=== PATIENT | male | born 1940 | race Caucasian/White ===

== ENCOUNTER 2017-11-10 08:43 | Observation (INO) | payer MEDICARE, BC ==
[2017-11-10] MEDS ORDERED: NS 0.9% 1000 ML* 1,000 ML IV ONE (09:11)
--- NOTE | 2017-11-10 09:12 | ED ---
Syncope/Near Syncope - HPI Summary HPI Summary: Patient is a 77-year-old male who presents emergency department for evaluation after a fall. Patient has a history of Parkinson's disease. Denies at home with his . Patient states he got up early this morning to go to the bathroom when he suddenly syncopized and struck his head and left flank. He denied current chest pain, shortness of breath, lightheadedness, dizziness, recent illness, vomiting, diarrhea, abdominal pain, fever. Patient states he went back to sleep and when he awoke, he urinated blood and presented to the emergency department. He is not anticoagulated. Symptoms are moderate in severity. No current modifying factors. - History Of Current Complaint Chief Complaint: EDUrogenitalProblems Time Seen by Provider: 11/10/17 08:57 Hx Obtained From: Patient, Family/Wirer Maintenance - Allergies/Home Medications Allergies/Adverse Reactions: Allergies Allergy/AdvReac Type Severity Reaction Status Date / Time No Known Allergies Allergy Verified 11/10/17 08:51 Home Medications: Home Medications Amantadine CAP* [Symmetrel CAP*] 100 mg PO BID 11/10/17 [History Confirmed 11/10] Aspirin EC TAB* [Ecotrin EC Low Dose 81 MG*] 81 mg PO DAILY 11/10/17 [History Confirmed 11/10/17] Carbidopa/Levodop 25/100 MG(*) [Sinemet 25/100 TAB(*)] 1 tab PO QID 11/10/17 [ History Confirmed 11/10/17] Cholecalciferol (Vitamin D3) [Vitamin D3] 2,000 unit PO DAILY 11/10/17 [History Confirmed 11/10/17] Docusate CAP* [Colace Cap*] 200 mg PO DAILY 11/10/17 [History Confirmed 11/10/17 ] Donepezil TAB* [Aricept 5 MG TAB*] 10 mg PO DAILY 11/10/17 [History Confirmed ] Escitalopram (NF) [Lexapro 20 mg (NF)] 20 mg PO DAILY 11/10/17 [History Confirmed 11/10/17] Ketoconazole 2 % CREAM (NF) [Nizoral 2% CREAM (NF)] 1 applic TOPICAL BID PRN [History Confirmed 11/10/17] Melatonin 10 mg PO BEDTIME 11/10/17 [History Confirmed 11/10/17] busPIRone TAB* [Buspar TAB*] 5 mg PO TID 11/10/17 [History Confirmed 11/10/17] PMH/Surg Hx/FS Hx/Imm Hx Previously Healthy: Yes Cardiovascular History: Denies: Hx Pacemaker/ICD Sensory History: Denies: Hx Hearing Aid Psychiatric History: Denies: Hx Panic Disorder - Surgical History Surgery Procedure, Year, and Place: MELANOMA REMOVED FROM RIGHT CHEEK Infectious Disease History: No Infectious Disease History: Denies: Traveled Outside the [place] in Last 30 Days - Family History Known Family History: Positive: Other - Noncontributory - Social History Occupation: Retired Lives: With Family Alcohol Use: Weekly Substance Use Type: Reports: None Smoking Status (MU): Never Smoked Tobacco Review of Systems Constitutional: Negative Negative: Fever, Chills Eyes: Negative ENT: Negative Cardiovascular: Negative Negative: Palpitations, Chest Pain Respiratory: Negative Negative: Shortness Of Breath, Cough Gastrointestinal: Negative Positive: flank pain, hematuria Musculoskeletal: Negative Skin: Negative Positive: Headache All Other Systems Reviewed And Are Negative: Yes Physical Exam Triage Information Reviewed: Yes Vital Signs On Initial Exam: Initial Vitals Temp Pulse Resp BP Pulse Ox 98.1 F 76 16 130/63 96 11/10/17 08:47 11/10/17 08:47 11/10/17 08:47 11/10/17 08:47 11/10/17 08:47 Vital Signs Reviewed: Yes Appearance: Positive: Well-Appearing - Pt. lying on bed in NAD. present. Skin: Positive: Warm, Dry Head/Face: Positive: Normal Head/Face Inspection Eyes: Positive: Normal, EOMI Neck: Positive: Supple Respiratory/Lung Sounds: Positive: Clear to Auscultation, Breath Sounds Present Cardiovascular: Positive: Normal, RRR Abdomen Description: Positive: Nontender, Soft, CVA Tenderness (L) Neurological: Positive: Normal, CN Intact II-III Psychiatric: Positive: Affect/Mood Appropriate - Lilliana Coma Scale Best Eye Response: 4 - Spontaneous Best Motor Response: 6 - Obeys Commands Best Verbal Response: 5 - Oriented Coma Scale Total: 15 Diagnostics - Vital Signs Vital Signs Temp Pulse Resp BP Pulse Ox 11/10/17 08:47 98.1 F 76 16 130/63 96 - Laboratory Result Diagrams: 11/10/17 09:21 11/10/17 09:21 Lab Statement: Any lab studies that have been ordered have been reviewed, and results considered in the medical decision making process. Course/Dx Course Of Treatment: Patient presenting with possible syncopal episode, flank pain and hematuria. Vital signs are stable. Blood work and imaging was ordered. Labs are unremarkable. Head, neck and abdominal CT scan are negative for acute findings. Urinalysis does show an elevated RBCs as well as WBCs. Negative troponin. EKG done at 923 shows a sinus rhythm of 61 bpm, normal axis , appropriate intervals, no ST elevation or depression. Case discussed with Dr. Healy. Give likely syncopal episode, recommends admission. I spoke with hospitalist, Dr. Cochran, and pt. has been accepted for further evaluation and care. - Diagnoses Provider Diagnoses: Syncope, Hematuria Discharge - Sign-Out/Discharge Documenting (check all that apply): Patient Departure - Discharge Plan Condition: Stable Disposition: ADMITTED TO [facility] - Billing Disposition and Condition Condition: STABLE Disposition: Admitted to [facility]
[2017-11-10 09:28] LABS: ABS Basophils 0 10^3/ul (0-0.2); ABS Eosinophils 0.1 10^3/ul (0-0.6); ABS Lymphocytes 0.9 10^3/ul (1.0-4.8); ABS Monocytes 0.4 10^3/ul (0-0.8); ABS Neutrophils 3.8 10^3/ul (1.5-7.7); ABS Nucleated RBC 0 10^3/ul; Eosinophil % 1.1 % (0-6); Hematocrit 44 % (42-52); Hemoglobin 15.3 g/dl (14.0-18.0); Lymphocyte % 18.1 % (25-47); Mean Corpuscular HGB Conc 35 g/dl (31-36); Mean Corpuscular Hemoglobin 33 pg (27-31); Mean Corpuscular Volume 94 fL (80-94); Mean Platelet Volume 7.1 um3 (7.4-10.4); Nucleated Red Blood Cells % 0.1; Platelet Count 196 10^3/ul (150-450); Red Blood Count 4.73 10^6/ul (4.00-5.40); Red Cell Distribution Width 14 % (10.5-15); White Blood Count 5.2 10^3/ul (3.5-10.8)
[2017-11-10 09:39] LABS: INR 1.06 (0.77-1.02)
[2017-11-10 09:46] LABS: EGFR Non-African American 87.6 (>60)
[2017-11-10] MEDS ORDERED: Iohexol 300* (CONTRAST) 10 ML SDV IV ONE (09:56)
--- NOTE | 2017-11-10 10:10 | RAD ---
INDICATION: Syncope. COMPARISON: Comparison is made with prior chest x-ray study from December 18, 2015. TECHNIQUE: A portable view of the chest was obtained. FINDINGS: Cardiac and mediastinal contours appear to be within normal limits. The lungs are hyperinflated and clear. No pleural effusion is seen. IMPRESSION: NO EVIDENCE FOR ACUTE DISEASE.
--- NOTE | 2017-11-10 10:37 | RAD ---
HISTORY: fall COMPARISONS: None TECHNIQUE: Multiple contiguous axial CT scans were obtained of the head without intravenous contrast. FINDINGS: HEMORRHAGE/INFARCT: There is no hemorrhage or acute infarct. MASSES/SHIFT: There is no mass or shift. EXTRA-AXIAL SPACES: There are no extra-axial fluid collections. SULCI AND VENTRICLES: The sulci and ventricles are normal in size and position for the patient's stated age. CEREBRUM: There are no focal parenchymal abnormalities. BRAINSTEM: There are no focal parenchymal abnormalities. CEREBELLUM: There are no focal parenchymal abnormalities. VESSELS: The vessels are grossly normal. PARANASAL SINUSES: The paranasal sinuses are clear. ORBITS: The orbits are unremarkable. BONES AND SOFT TISSUE: No bone or soft tissue abnormalities are noted. OTHER: None IMPRESSION: NO ACUTE INTRACRANIAL PATHOLOGY.
--- NOTE | 2017-11-10 14:58 | RAD ---
INDICATION: Flank pain and gross hematuria post fall yesterday. History of melanoma. COMPARISON: No relevant prior exams available on the [facility] for comparison. TECHNIQUE: Multidetector CT images were obtained from the lung bases to the ischial tuberosities with 112 mL Omnipaque 300 IV contrast. No oral contrast administered. Multiplanar reformation. REPORT: VISUALIZED INFERIOR THORAX: Minimal bibasilar dependent atelectasis. Negative for pleural effusions or pneumothorax within the [id number]. LIVER / GALLBLADDER / PANCREAS / SPLEEN: Unremarkable liver, incompletely distended gallbladder, pancreas, spleen. ALIMENTARY TRACT: No CT abnormality of the upper GI, small bowel, infra cecal appendix, or colon. Negative for ascites, free air, hernias. MESENTERIC: Unremarkable. ADRENAL / GENITOURINARY: Normal adrenal glands. Symmetric nephrograms and pyelograms. Normal variant extrarenal pelves. Mild caliectasis of both kidneys. Negative for perinephric edema or hematoma. Unremarkable nondilated ureters and partially distended urinary bladder. Enlarged prostate. Grossly symmetric seminal vesicles. RETROPERITONEAL: Negative for retroperitoneal lymphadenopathy. VASCULAR: Mild atherosclerotic plaque of normal diameter abdominal aorta and iliac arteries. Physiologic partial distention of the IVC. BONES: Negative for lumbar sacral spine, pelvic, or proximal femur fracture. Polyarticular degenerative arthropathy. Negative for suspicious focal osseous lesions. SOFT TISSUE: Unremarkable. IMPRESSION: #. No definitive etiology for gross hematuria evident. #. Probable mild bilateral chronic ureteropelvic junction obstruction. #. Prostatomegaly. #. Negative for lymphadenopathy.
--- NOTE | 2017-11-10 14:59 | RAD ---
Indication: Fall, neck injury. CT of the cervical spine was obtained in the axial plane. Sagittal and coronal reconstructed images were obtained. The skull base demonstrates no evidence of fracture. Mastoid air cells are well aerated. The C1 ring is intact. Degenerative changes of the atlantoaxial joint are noted. Degenerative disc disease at C2-3, C3-4, C4-5, C5-6 and C6-7 with bridging syndesmophytes are noted. Bridging syndesmophytes are noted at C5-6 and C6-7 dorsally. No fracture is noted. Adjacent to the spinous process at C5 and C6, there are bony fragments which likely represent sequela of old injury. IMPRESSION: 1. Multilevel degenerative disc disease without evidence of fracture. 2. Sequela of old injury adjacent to the spinous process of C5 and C6.
[2017-11-10] MEDS ORDERED: Acetaminophen TAB* 325 MG PO PRN (15:47)
[2017-11-10] MEDS ORDERED: Al Hydrox/Mg Hydrox/Simet LIQ* 30 ML UDC PO PRN (15:47)
[2017-11-10] MEDS ORDERED: oxyCODONE/Acetamin 5/325 MG* TAB PO PRN (15:47)
[2017-11-10] MEDS ORDERED: Albuterol 2.5 MG/3 ML NEB.SOL* (0.083%) INH PRN (15:47)
[2017-11-10] MEDS ORDERED: Ondansetron INJ* 2 MG/ML VIAL IV PRN (15:47)
[2017-11-10] MEDS ORDERED: Ketoconazole 2 % CREAM (NF) 30 GM TUBE TOPICAL PRN (15:52)
[2017-11-10 16:30] LABS: Urine Appearance Clear; Urine Blood 3+ (Negative); Urine Color Straw; Urine Ketones Negative (Negative); Urine Protein Negative (Negative); Urine Red Blood Cell 2+(6-10/hpf) (Absent); Urine Specific Gravity 1.016 (1.010-1.030); Urine Urobilinogen Negative (Negative); Urine White Blood Cell 3+(>20/hpf) (Absent)
[2017-11-10] MEDS ORDERED: Carbidopa/Levodop 25/100 MG TAB(*) PO SCH ×4 (17:00→21:00)
[2017-11-10] MEDS ORDERED: Melatonin 3 MG TAB PO SCH (21:00)
[2017-11-10] MEDS: Amantadine CAP* 100 MG PO SCH (21:11)
[2017-11-10] MEDS: busPIRone TAB* 5 MG PO SCH (21:12)
[2017-11-10] MEDS: Heparin VIAL(*) 5000 UNITS/ML VIAL (FIVE THOUSAND) SUBCUT SCH (21:14)
--- NOTE | 2017-11-10 21:25 | HP ---
ADMISSION HISTORY AND PHYSICAL: DATE OF ADMISSION: 11/10/17 PATIENT OF ATTENDING HOSPITALIST: Tc Cochran MD * (DICTATED BY LOI MAAYA) PRIMARY CARE PHYSICIAN: Marcelo Fernando MD CHIEF COMPLAINT: Syncope and fall. HISTORY OF PRESENT ILLNESS: Mr. Verma is a 77-year-old gentleman with past medical history significant for severe advanced Parkinson's disease who presented to the emergency room earlier this morning after he sustained a fall at home. The patient apparently had intermittent dizzy spells for which he has been managing well at home taking his Parkinson's medicine. He denied any syncopal episode related to his dizziness; however, he realized that he sometimes gets orthostatic hypotension at home and has been careful when he gets up from a sitting or a lying down position. Unfortunately, he had another dizzy spell this morning that led to a syncopal episode. Then, he fell at home striking his head and left side. He was brought to the emergency room accompanied by his and denied any chest pain, dizziness, or headache. He had a CT scan of the head and neck that revealed no evidence of intracranial hemorrhage or any acute process. He also noted some pain to the left flank when he fell; however, he denied any pain right now. A CT scan of the abdomen and pelvis was done in the emergency room as well that revealed no evidence of fractured rib or splenic or hepatic injury. The patient was in the emergency room and had to use a bathroom, noticed to have some gross hematuria upon voiding. UA was done and revealed also evidence of urinary tract infection. The patient had some IV fluid and had voided twice more while he was staying in the emergency room with visible resolution of hematuria. It was thought that the patient would be stable to be discharged home and he wanted to sign AMA at some point; however, he was talked into staying in the hospital for observation overnight given his syncopal episode that was likely secondary to his known history of Parkinson's disease. He denied any chest pain, shortness of breath, cough, dizziness, slurred speech, or lower extremity weakness. PAST MEDICAL HISTORY: As mentioned above, significant for: 1. Advanced Parkinson's disease. 2. Also, anxiety and depression. PAST SURGICAL HISTORY: Significant for melanoma removal from his right cheek about 10 years ago. It was stage 1 with no evidence of metastasis. CURRENT MEDICATIONS: His medications at home include: 1. Amantadine 100 mg p.o. b.i.d. 2. Aspirin 81 mg p.o. daily. 3. BuSpar 5 mg p.o. t.i.d. 4. Carbidopa levodopa 25/100 one tablet p.o. 4 times a day. 5. Vitamin D3 2000 units p.o. daily. 6. Colace 200 mg p.o. daily. 7. Aricept 10 mg p.o. daily. 8. Lexapro 20 mg p.o. daily. 9. Ketoconazole 2% cream apply to affected area b.i.d. 10. Melatonin 10 mg p.o. q.h.s. ALLERGIES: He has no known drug allergies. FAMILY HISTORY: Reviewed and noncontributory. SOCIAL HISTORY: The patient is a nonsmoker who drinks alcohol occasionally. He is retired. Lives with his who is the healthcare proxy carrier and he wishes to be a full code. REVIEW OF SYSTEMS: See HPI. Otherwise, 12 points review of systems were examined and they were essentially negative. PHYSICAL EXAMINATION GENERAL: He is a pleasant, older male, appears comfortable with some resting tremors obvious upon presentation, but in no acute distress or discomfort. VITAL SIGNS: Most recent set of vitals was temperature of 98.1, pulse of 63, blood pressure of 125/97, respirations of 16 with O2 sat of 96% on room air. HEENT: Head is normocephalic, atraumatic. There is no evidence of ecchymosis or swelling or any tenderness along the cranium. No abrasions noted. Pupils were equal, reactive, and EOMs were intact. Oropharynx is pink and moist. LUNGS: Clear to auscultation bilaterally. HEART: Regular rate and rhythm. Normal S1 and S2 without rubs, murmurs, or gallops. BACK: With normal curvature. No CVA tenderness. ABDOMEN: Soft, nontender, and nondistended. No hernias, masses, or hepatosplenomegaly. EXTREMITIES: Without cyanosis, clubbing, or edema. RECTAL: Exam deferred at this time. NEUROLOGIC: He is awake, alert, and oriented x4. Tongue is midline. Handgrip is equal bilaterally. There is visible bilateral resting tremors consistent with Parkinson's disease. Sensation was intact throughout. LABORATORY WORKUP: CBC today with white count of 5000, hemoglobin 15.3, hematocrit of 44, and platelets of 197. Chemistry panel with sodium of 135, potassium of 4.0, chloride 99, CO2 of 31, BUN of 17, creatinine of 0.8. His LFTs with elevated bilirubin of 2.0 and appears to be close to his baseline usually at the 1.6-1.7 range. Urinalysis with 3+ blood, positive for white cells and red cells. ACCESSORY DIAGNOSTIC DATA: The patient had CT scan of the brain, cervical spine as well as abdomen and pelvis that revealed no evidence of any acute injury or acute intracranial pathology. IMPRESSION: A 77-year-old gentleman with past medical history significant for advanced Parkinson's disease who presented to the emergency room after he sustained a fall secondary to a syncopal episode at home with history of chronic dizziness secondary to his Parkinson's disease, will be admitted to telemetry unit for observation for the following. ASSESSMENT AND PLAN: 1. Syncope. I suspect the patient had another dizzy episode with probable orthostatic hypotension. He described similar episodes at home; however, never progressed to a full syncopal episode. He sustained a fall with head injury and CT scan of the head and cervical spine showed no evidence of any intracranial hemorrhage. His neurological exam was essentially unremarkable; however, we will observe him closely at telemetry unit overnight with neurological examination every 4 hours and we will maintain him on all his Parkinson's medication. He denied any chest pain and I do not think there is any cardiac origin for his syncopal episode. He received a bolus of normal saline in the emergency room and it appears to maintain his blood pressure at reasonable range. I will repeat his orthostatic vitals and observe him overnight, likely to be discharged home tomorrow if stable. 2. Advanced Parkinson's disease. We will continue his amantadine and Sinemet. 3. Deep vein thrombosis prophylaxis. The patient is at high risk and will be covered with subcu heparin. 4. Code status. He is a full code. LOI AMAYA [id number]/[facility] #: [id number] [facility]
[2017-11-10] MEDS: Carbidopa/Levodop 25/100 MG TAB(*) PO SCH (21:39)
[2017-11-11] MEDS: Heparin VIAL(*) 5000 UNITS/ML VIAL (FIVE THOUSAND) SUBCUT SCH (06:31)
[2017-11-11] MEDS: Carbidopa/Levodop 25/100 MG TAB(*) PO SCH ×2 (06:34→11:46)
[2017-11-11 07:15] LABS: ABS Basophils 0 10^3/ul (0-0.2); ABS Eosinophils 0.1 10^3/ul (0-0.6); ABS Lymphocytes 1.5 10^3/ul (1.0-4.8); ABS Monocytes 0.5 10^3/ul (0-0.8); ABS Neutrophils 3.7 10^3/ul (1.5-7.7); ABS Nucleated RBC 0 10^3/ul; Eosinophil % 1.8 % (0-6); Hematocrit 43 % (42-52); Hemoglobin 14.8 g/dl (14.0-18.0); Lymphocyte % 25.5 % (25-47); Mean Corpuscular HGB Conc 34 g/dl (31-36); Mean Corpuscular Hemoglobin 32 pg (27-31); Mean Corpuscular Volume 94 fL (80-94); Mean Platelet Volume 7.2 um3 (7.4-10.4); Nucleated Red Blood Cells % 0; Platelet Count 189 10^3/ul (150-450); Red Blood Count 4.59 10^6/ul (4.00-5.40); Red Cell Distribution Width 14 % (10.5-15); White Blood Count 5.8 10^3/ul (3.5-10.8)
[2017-11-11 07:40] LABS: EGFR Non-African American 92.6 (>60)
[2017-11-11] MEDS: Amantadine CAP* 100 MG PO SCH (08:20)
[2017-11-11] MEDS: busPIRone TAB* 5 MG PO SCH ×2 (08:21→13:00)
[2017-11-11] MEDS ORDERED: CMC:Escitalopram (NF) 10 MG TAB PO SCH (09:00)
[2017-11-11] MEDS ORDERED: Donepezil TAB* 5 MG PO SCH (09:00)
[2017-11-11] MEDS ORDERED: Aspirin EC TAB* 81 MG TAB.EC PO SCH (09:00)
[2017-11-11] MEDS ORDERED: Docusate CAP* 100 MG PO SCH (09:00)
[2017-11-11 11:56] VITALS: BP 137/73
--- NOTE | 2017-11-14 09:53 | DS ---
CC: Dr. Fernando DISCHARGE SUMMARY: DATE OF ADMISSION: 11/10/17 DATE OF DISCHARGE: 11/11/17 PRIMARY CARE PROVIDER: Dr. Marcelo Fernando, [facility]. PRINCIPAL DISCHARGE DIAGNOSES: 1. Orthostatic hypotension related to severe advanced Parkinson's disease (postural orthostatic tach ycardia syndrome). 2. Anxiety. 3. Depression. 4. Status post melanoma removal from his right cheek. DISCHARGE MEDICATIONS: No changes and include: 1. Amantadine 100 mg by mouth twice daily. 2. Aspirin 81 mg by mouth daily. 3. BuSpar 5 mg by mouth 3 times daily. 4. Carbidopa/levodopa 25/100 mg strength one tablet by mouth 4 times daily. 5. Vitamin D3 2000 units by mouth daily. 6. Colace 200 mg by mouth daily. 7. Aricept 10 mg by mouth daily. 8. Lexapro 20 mg by mouth daily. 9. Ketoconazole 2% cream applied to the affected area twice daily. 10. Melatonin 10 mg by mouth at bedtime. HISTORY OF PRESENT ILLNESS/HOSPITAL COURSE: Please see the H and P by Dr. Tc Cochran on 10/23 . In brief, Mr. Verma is a 77-year-old gentleman with a past medical history noted below, who ca me to the emergency room for a fall at his home. He has been suffering intermittent dizzy spells and managing well at home otherwise. He is taking his Parkinson's medications reliably. He denied sync opal episodes related to dizziness; however, he notes that he sometimes gets orthostatic hypotension at home, and has been careful when he gets up from a sitting or a lying position. The patient had an additional dizzy spell that lead to a syncopal episode. The patient struck his head on his left girish e. He came to the emergency room and CT scanning of his head and neck revealed no evidence of intrac ranial hemorrhage or any acute process. The patient was pain free by the time I reevaluated him on 11/11/17. The patient received ample IV fluids. He voided twice and was standing without any difficu lty at the point of admission. He lives with his and she cares for him. The patient stayed ove rnight to ensure his blood pressure had normalized and in deeded it was improved and there was no enid dence of orthostatic hypotension by the time of discharge. The patient was on observation status and he was delivered return to ED instructions if he had any worrisome or continued symptoms including b ut not limited to lightheadedness, syncope/loss of consciousness, chest pain, or any other worrisome symptoms and he said he will comply. CONDITION ON DISCHARGE: Stable. [id number]/[facility] #: [id number]
== END 2017-11-11 13:16 | disposition home or self-care (01) ==
LOC: ED 08:43 → MEDTELE 15:47
PROVIDERS: ADMIT Student in an Organized Health Care Education/Training Program; ATTEND Internal Medicine
DX: R55 Syncope and collapse (principal); G20 Parkinson's disease; F41.9 Anxiety disorder, unspecified; F32.9 Major depressive disorder, single episode, unspecified; Z79.899 Other long term (current) drug therapy; Z79.82 Long term (current) use of aspirin
CPT/HCPCS: 36415; 70450; 71045; 72125; 74177; 80048; 80053; 81003; 81015; 84484; 85025; 85610; 87086; 93005; 96360; 96361; 96372; 99284; A9270-GY; G0378; J1644; Q9967

== ENCOUNTER → 2018-05-25 13:33 | Emergency (ER) | payer MEDICARE, BC ==
--- OUTSIDE RECORDS SUMMARY | 2018-05-25 13:52 | XMS REPORT | Continuity of Care Document ---
:1940 External Reference #:[id number] Author Name Marcelo Fernando M.D. Address [address] [place] [address] Care Team Providers Name Role Phone Marcelo Fernando M.D. Care Team Information Storage Consultant Unavailable Payers Date Identification Numbers Payment Provider Subscriber Policy Number: [id number] [facility] Number: [id number] PayID: [id number] [place] [address] Expires: 02/20/2013 Policy Number: [id number] [facility] Andrew Verma Group Number: [id number] [address] [place] [address] Effective: 02/21/2013 Policy Number: [id number] [facility] Andrew Verma Expires: 08/21/2017 Group Number: [id number] [address] PayID: [id number] [place] [address] Effective: 02/21/2017 Policy Number: [id number] [facility] Andrew Verma Group Name: [place] [address] [address] PayID: [id number] [place]OW[place] [id number] Advance Directives Type Date Description Status Comment Other Directive 12/13/2012 Health Care Proxy Current and Verified Problems Date Description Provider Status Onset: 06/03/2010 Essential hypertension Marcelo Fernando M.D. Active Onset: 06/03/2010 Mixed hyperlipidemia Marcelo Fernando M.D. Active Onset: 07/22/2015 Impaired fasting glycaemia Marcelo Fernando M.D. Active Onset: 04/05/2012 Parkinson's disease Marcelo Fernando M.D. Active Family History Date Family Member(s) Observation Comments Father Hypertension Father due to NM () - first NM in his 60's Father Stroke Mother Non Contributory : (age Mother due to Hip 94 Years) Fracture Children 2 First Son Non Contributory Second Son Non Contributory Siblings 1 First Sister Non Contributory First Sister sclearoderma (possibly) Grandchildren Grandchildren 03 Paternal Grandfather Non Contributory Paternal Grandfather due to Unknown () Causes Paternal Grandmother Unknown Maternal Grandfather Non Contributory Maternal Grandfather due to Unknown () Causes Maternal Grandmother Unknown Social History Type Date Description Comments Sex Unknown Marital Status Home Environment Single story home Diet Healthy, Well Balanced Diet . Eats red meat once a week. 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 Tobacco Use Start: Unknown Never Smoked Cigarettes ETOH Use Drinks 1 martini a day and several glasses of wine a day. Exercise Type/Frequency Walks daily 60 min daily. Allergies, Adverse Reactions, Alerts Description No Known Drug Allergies Medications Medication Date Status Form Strength Qnty SIG Indications Ordering Provider Terbinafine HCL 03/16 Active Cream 1% 30gm apply to B35.4 rash on Fernando, pelvis M.D. twice a day as needed. Sodium Chloride 11/21 Active Tablets 1gm 180ta 1 po qd bs to bid Ceci Fernando Fluticasone 11/21 Active Suspension 50mcg/Act 29.7m 1 to 2 J30.0 l sprays Kassie, into each M.D. nostril once daily Buspirone HCL 03/16 Active Tablets 5mg 270ta 1 po tid jaspreet Fernando M.D. Donepezil HCL 10/14 Active Tablets 10mg 90tab Take 1 s Tablet AT Kassie, Bedtime M.D. *Dose Increase From 5MG* Vitamin D 06/19 Active Capsules 1000Unit 90cap 1 po qd monse Fernando M.D. Escitalopram 11/15 Active Tablets 20mg 1 po qd 300.09 Ceci Fernando Carbidopa/Levodop Active Tablets 25-100mg 2 po qam, Unknown 1.5 tid Melatonin Active Tablets 5mg 1 po qhs Ketoconazole Active Cream 2% Apply Twice Daily To Affected Areas For 2 Month Doxycycline 12/24 Hx Capsules 100mg 2caps 2 cap by Bryant Patton mouth Bradley - once for III, LABOR ARBITRATOR-C 01/26 prophylax is. Selegiline HCL 02/08 Hx Capsules 5mg Kassie, - M.D. 03/15 Doxycycline 07/06 Hx Capsules 100mg 2caps 2 cap by S40.862A Bryant rebeca mouth Bradley - once for III, LABOR ARBITRATOR-C 07/21 prophylax is. Cozaar 06/17 Hx Tablets 25mg 30tab 1 tab by I10 s mouth Kassie, - daily M.D. 10/14 Docusate Sodium 05/29 Hx Capsules 100mg 2 po qd - 03/15 Hydrochlorothiazi 08/29 Hx Tablets 12.5mg 90tab Take 1 I10 s Tablet Kassie, - Daily M.D. 07/21 Cozaar 06/19 Hx Tablets 100mg 90tab 1 by I10 s mouth Dylon, - every day [employer] ARBITRATOR-C 06/17 Isradipine 06/19 Hx Capsules 5mg 180ca Take 1 401.9 ps Capsule Kassie, - Twice M.D. 06/04 Isradipine 06/19 Hx Capsules 5mg 180ca Take 1 401.9 ps Capsule Kassie, - Twice M.D. 06/04 Isradipine 06/19 Hx Capsules 5mg 180ca Take 1 I10 ps Capsule Kassie, - Twice M.D. 09/20 Escitalopram 03/22 Hx Tablets 10mg 90tab 1 po qd 300.09 s Kassie, - M.D. 11/15 Alprazolam 03/22 Hx Tablets 0.25mg 20twe 1/2 or 1 300.09 nty po bid Kassie, - prn M.D. 06/05 Doxycycline 12/03 Hx Tablets 100mg 4tabs 2 tabs po 782.1 Marcelo Hyclate /2010 x 1 Stacey Fernando M.D. 04/28 72hrs deer tick bite Doxycycline 11/16 Hx Capsules 100mg 28cap 1 po bid 782.1 Ludy Monohydrate s x 14 days Stacey Silva M.D. 11/29 Doxycycline 07/23 Hx Capsules 100mg 28cap 1 po bid Marcelo Monohydrate s x 14 days Stacey Fernando M.D. 10/21 Doxycycline 07/22 Hx Capsules 100mg 2caps Marcelo Hycl Stacey Fernando M.D. 07/23 Colace 12/03 Hx Capsules 50mg 1 po qd Stacey Fernando M.D. 05/11 Overnight 12/05 Hx on room 780.50 Oxim air. Stacey Fernando M.D. 01/04 Cozaar 11/20 Hx Tablets 25mg 270ta 1 po qam, 401.9 bs 3 qhs Stacey Fernando M.D. 06/19 Cozaar 11/17 Hx Tablets 50mg 90tab 1 po qd Stacey Yancey M.D. 11/20 Fish Oil 06/05 Hx Capsules 1000mg 1 po qd 272.2 Stacey Fernando M.D. 06/15 Aspirin 01/21 Hx Chewtabs 81mg 1 PO qd I10 Stacey Fernando M.D. 01/26 Multivitamins 06/12 Hx Tablets 30tab 1 PO qd Stacey Yancey M.D. 06/03 Vitamin D 06/12 Hx Capsules Stacey Fernando M.D. 06/19 Cozaar 02/09 Hx Tablets 50mg 90tab 1 po qd 401.9 Stacey Yancey M.D. 01/21 Cozaar 02/09 Hx Tablets 50mg 30tab 1 PO qd 401.9 Stacey Yancey M.D. 03/11 Enalapril 08/16 Hx Tablets 5mg 30tab 1 po qd 401.9 Stacey Yancey M.D. 11/14 Enalapril 08/16 Hx Tablets 5mg 90tab 1 PO qd Stacey Yancey M.D. 02/09 Lisinopril 05/19 Hx Tablets 5mg 30tab 1 po qd 401.9 Stacey Yancey M.D. 05/19 Lisinopril 05/19 Hx Tablets 5mg 90tab 1 po qd 401.9 Stacey Yancey M.D. 02/09 Aspirin 05/19 Hx Tablets 325mg 1 PO qd 401.9 Stacey Fernando M.D. 01/21 Hydrochlorothiazi 04/14 Hx Tablets 25mg 30tab 1/2 po qd 401.9 Marcelo s x 7 daysKassie - then 1 MRandall 05/19 qd. Hydrochlorothiazi 04/14 Hx Tablets 25mg 90tab 1 po qd 401.9 Marcelo Stacey Yancey M.D. 08/29 Albuterol Metered 09/28 Hx Inhaler 1unit Two Puffs 465.9 Zach J. Dose Inhaler /2005 s Q 4-6 HRS Ceci Beck - prn 06/05 Doxycycline 06/03 Hx Capsules 100mg 42cap one bid 088.81 Ivonne /2004 s for 3 K.WSang - brooke Patel, 01/25 Ceci /2004 Ropinirole HCL Hx Tablets 0.25mg Unknown /0000 - 06/15 Pramipexole Hx Tablets 0.125mg 3 po qhs Ale Dewey /0000 Stacey Craft MD 10/31 Amlodipine Hx Tablets 5mg 1 po qd Dez Mahmood Besylate /0000 MD - 06/19 Bupropion HCL ER 00 Hx Tablets ER 150mg Unknown (XL) / 24HR - 09/13 Donepezil HCL 00 Hx Tablets 5mg Marcelo Stacey Fernando M.D. 10/14 Losartan Hx Tablets 100mg 90tab Take 1 Candace Potassium / s Tablet Dylon, - Daily LABOR ARBITRATOR-C 10/24 Amantadine HCL Hx Tablets 100mg 180ta take 1 bs tablet by Kassie - mouth 2 M.D. 01/26 times per day Amantadine HCL Hx Capsules 100mg Brittany /0000 MD Fidencio - 09/21 Medications Administered in Office Medication Date Status Form Strength Qnty SIG Indications Ordering Provider H1N1 Administered Injection Marcelo Immunization 010 Philippe Fernando M.D. Including Counseling Immunizations CPT Code Status Date Vaccine Lot # [id number] Given 10/26/2017 Influenza Vaccine High Dose PF [id number] 92649 Given 10/14/2016 Influenza Vaccine High Dose PF [id number] 21028 Given 12/02/2015 Influenza Vaccine High Dose PF [id number] 26569 Given 07/22/2015 Hepatitis A, Adult [id number] 71794 Given 11/29/2014 Influenza Vaccine High Dose PF [id number] 90975 Given 02/28/2014 Prevnar-13 Pneumococcal Conjugate Vaccine [id number] 58355 Given 10/31/2013 Influenza Vaccine High Dose PF [id number] 53083 Given 12/21/2011 Influenza Vaccine-Preservative Free 3 Yrs And [id number] Above 72291 Given 06/18/2011 Tdap (Adacel) [id number] 91453 Given 11/16/2010 Influenza Vaccine-Preservative Free 3 Yrs And [id number] Above 19903 Given 07/03/2010 Zoster Vaccine [id number] 13014 Given 07/03/2010 Zoster Vaccine 97162 Given 06/03/2010 Hepatitis A, Adult [id number] 79909 Given 12/03/2009 Influenza Vaccine-Preservative Free 3 Yrs And [id number] Above 39091 Given 03/03/2009 H1N1 Influenza Vaccine [id number] 87494 Given 11/05/2008 Influenza Vaccine-Preservative Free 3 Yrs And [id number] Above 00820 Given 11/24/2007 Influenza Virus Vaccine, 3 Yrs And Above [id number] 34823 Given 06/13/2007 Td Age 7 to adult Decavac, Tenivac, [place] [id number] Biologics 23973 Given 12/19/2006 Pneumovax 23 (PPSV23) 65+ years or high risk 2 [id number] to 64 year old 55679 Given 12/19/2006 Influenza Virus Vaccine, 3 Yrs And Above [id number] 90758 Given 12/20/2005 Influenza Virus Vaccine, 3 Yrs And Above 77185 Given 03/11/2004 Influenza Virus Vaccine, 3 Yrs And Above Vital Signs Date Vital Result Comment 05/15/2018 8:54am Weight 202.00 lb Weight 91.627 kg BP Systolic 124 mmHg BP Diastolic 60 mmHg Heart Rate 64 /min Body Temperature 97.0 F Respiratory Rate 20 /min Height 74.0 inches 6'2" BMI (Body Mass Index) 25.9 kg/m2 03/16/2018 3:26pm Weight 194.25 lb Weight 88.112 kg BP Systolic 118 mmHg BP Diastolic 60 mmHg Heart Rate 70 /min Body Temperature 97.0 F Respiratory Rate 20 /min Height 74 inches 6'2" BMI (Body Mass Index) 24.9 kg/m2 O2 % BldC Oximetry 96 % 01/26/2018 9:33am Weight 192.00 lb Weight 87.091 kg BP Systolic 92 mmHg BP Diastolic 52 mmHg Heart Rate 67 /min Body Temperature 98.1 F Height 74.25 inches 6'2.25" BMI (Body Mass Index) 24.5 kg/m2 10/26/2017 11:08am Weight 187.00 lb Weight 84.823 kg BP Systolic 90 mmHg BP Diastolic 60 mmHg Heart Rate 68 /min Body Temperature 96.7 F Respiratory Rate 24 /min O2 % BldC Oximetry 97 % 09/21/2017 10:45am Weight 192.00 lb Weight 87.091 kg BP Systolic 124 mmHg BP Diastolic 72 mmHg Heart Rate 62 /min Body Temperature 97.6 F Respiratory Rate 28 /min O2 % BldC Oximetry 98 % 06/14/2017 10:49am Weight 210.00 lb Weight 95.256 kg BP Systolic 140 mmHg BP Diastolic 80 mmHg Heart Rate 64 /min Body Temperature 96.3 F Respiratory Rate 16 /min O2 % BldC Oximetry 96 % 03/16/2017 10:47am Weight 205.00 lb Weight 92.988 kg BP Systolic 130 mmHg BP Diastolic 68 mmHg Heart Rate 64 /min Body Temperature 97.0 F Respiratory Rate 16 /min O2 % BldC Oximetry 98 % 10/14/2016 3:07pm Weight 203.00 lb Weight 92.081 kg BP Systolic 108 mmHg BP Diastolic 60 mmHg Heart Rate 64 /min Body Temperature 96.9 F Respiratory Rate 28 /min 07/22/2016 2:14pm Weight 207.00 lb Weight 93.895 kg BP Systolic 134 mmHg BP Diastolic 76 mmHg Heart Rate 52 /min Body Temperature 97.4 F Respiratory Rate 40 /min Height 74.25 inches 6'2.25" BMI (Body Mass Index) 26.4 kg/m2 07/06/2016 9:22am Weight 208.00 lb Weight 94.349 kg BP Systolic 110 mmHg BP Diastolic 64 mmHg Heart Rate 68 /min Body Temperature 98.2 F Respiratory Rate 28 /min 06/17/2016 11:38am Weight 212.00 lb Weight 96.163 kg BP Systolic 110 mmHg BP Diastolic 60 mmHg Heart Rate 60 /min Body Temperature 97.7 F Respiratory Rate 12 /min O2 % BldC Oximetry 98 % 01/22/2016 9:39am Weight 216.00 lb Weight 97.978 kg BP Systolic 88 mmHg BP Diastolic 54 mmHg Heart Rate 54 /min Body Temperature 96.6 F Respiratory Rate 16 /min O2 % BldC Oximetry 98 % Room Air 12/10/2015 11:18am Weight 215.00 lb Weight 97.524 kg BP Systolic 96 mmHg BP Diastolic 62 mmHg Heart Rate 60 /min Body Temperature 98.5 F Respiratory Rate 36 /min O2 % BldC Oximetry 98 % 08/19/2015 2:47pm Weight 204.00 lb Weight 92.534 kg BP Systolic 128 mmHg BP Diastolic 70 mmHg Heart Rate 58 /min 07/22/2015 1:47pm Weight 196.00 lb Weight 88.906 kg BP Systolic 100 mmHg BP Diastolic 60 mmHg Heart Rate 82 /min Height 73 inches 6'1" BMI (Body Mass Index) 25.9 kg/m2 O2 % BldC Oximetry 97 % 12/12/2014 10:37am Weight 210.00 lb Weight 95.256 kg BP Systolic 110 mmHg BP Diastolic 60 mmHg Heart Rate 52 /min 06/05/2014 10:39am Weight 210.00 lb Weight 95.256 kg BP Systolic 110 mmHg BP Diastolic 60 mmHg Heart Rate 62 /min Height 74.5 inches 6'2.50" BMI (Body Mass Index) 26.6 kg/m2 12/19/2013 9:20am Weight 207.00 lb Weight 93.895 kg BP Systolic 104 mmHg BP Diastolic 68 mmHg Heart Rate 60 /min 08/29/2013 11:28am Weight 207.00 lb Weight 93.895 kg BP Systolic 114 mmHg BP Diastolic 52 mmHg Heart Rate 56 /min O2 % BldC Oximetry 96 % 06/19/2013 8:41am Weight 207.00 lb Weight 93.895 kg BP Systolic 122 mmHg BP Diastolic 72 mmHg Heart Rate 60 /min Height 75 inches 6'3" BMI (Body Mass Index) 25.9 kg/m2 11/15/2012 9:28am Weight 204.00 lb Weight 92.534 kg BP Systolic 120 mmHg BP Diastolic 80 mmHg Heart Rate 60 /min 06/15/2012 2:56pm Weight 205.00 lb Weight 92.988 kg BP Systolic 122 mmHg BP Diastolic 80 mmHg Heart Rate 60 /min Height 74.5 inches 6'2.50" BMI (Body Mass Index) 26.0 kg/m2 04/11/2012 2:38pm BP Systolic 126 mmHg His Machine 146/88 BP Diastolic 76 mmHg His Machine 146/88 04/05/2012 11:03am Weight 200.00 lb Weight 90.720 kg BP Systolic 122 mmHg BP Diastolic 78 mmHg Heart Rate 60 /min 03/22/2012 9:31am Weight 204.00 lb Weight 92.534 kg BP Systolic 132 mmHg BP Diastolic 80 mmHg Heart Rate 60 /min 12/21/2011 9:24am Weight 204.00 lb Weight 92.534 kg BP Systolic 130 mmHg BP Diastolic 76 mmHg Heart Rate 76 /min 06/18/2011 10:54am Weight 207.00 lb Weight 93.895 kg BP Systolic 140 mmHg BP Diastolic 80 mmHg Heart Rate 80 /min Height 75 inches 6'3" BMI (Body Mass Index) 25.9 kg/m2 05/06/2011 5:06pm Weight 210.00 lb Weight 95.256 kg BP Systolic 142 mmHg BP Diastolic 80 mmHg Heart Rate 50 /min 12/07/2010 11:39am Weight 205.00 lb Weight 92.988 kg BP Systolic 108 mmHg BP Diastolic 70 mmHg Heart Rate 60 /min Body Temperature 97.3 F 12/03/2010 10:12am Weight 202.00 lb Weight 91.627 kg BP Systolic 110 mmHg BP Diastolic 76 mmHg Heart Rate 56 /min 11/16/2010 10:11am Weight 204.00 lb Weight 92.534 kg BP Systolic 140 mmHg BP Diastolic 78 mmHg Heart Rate 72 /min Body Temperature 96.4 F 07/23/2010 4:34pm Weight 202.00 lb Weight 91.627 kg BP Systolic 110 mmHg BP Diastolic 76 mmHg Heart Rate 64 /min Body Temperature 97.4 F 06/03/2010 2:14pm Weight 202.00 lb Weight 91.627 kg BP Systolic 156 mmHg BP Diastolic 92 mmHg Heart Rate 66 /min Height 75.5 inches 6'3.50" BMI (Body Mass Index) 24.9 kg/m2 02/09/2010 8:33am Weight 203.00 lb Weight 92.081 kg BP Systolic 140 mmHg BP Diastolic 70 mmHg Heart Rate 64 /min 01/20/2010 8:57am Weight 205.00 lb Weight 92.988 kg BP Systolic 140 mmHg BP Diastolic 80 mmHg Heart Rate 60 /min Body Temperature 96.5 F 12/03/2009 9:57am Weight 201.00 lb Weight 91.174 kg BP Systolic 128 mmHg BP Diastolic 76 mmHg Heart Rate 60 /min 06/03/2009 1:23pm Weight 209.00 lb Weight 94.802 kg BP Systolic 120 mmHg BP Diastolic 74 mmHg Heart Rate 56 /min Respiratory Rate 18 /min Height 75 inches 6'3" BMI (Body Mass Index) 26.1 kg/m2 12/05/2008 9:28am Weight 210.00 lb Weight 95.256 kg BP Systolic 150 mmHg BP Diastolic 80 mmHg Heart Rate 88 /min 09/13/2008 3:20pm Weight 207.00 lb Weight 93.895 kg BP Systolic 140 mmHg BP Diastolic 80 mmHg Heart Rate 64 /min 06/05/2008 8:40am Weight 206.00 lb Weight 93.442 kg BP Systolic 144 mmHg BP Diastolic 84 mmHg Heart Rate 60 /min Height 75 inches 6'3" BMI (Body Mass Index) 25.7 kg/m2 08/22/2007 9:51am Weight 207.00 lb Weight 93.895 kg BP Systolic 160 mmHg BP Diastolic 90 mmHg Heart Rate 52 /min Height 75 inches 6'3" BMI (Body Mass Index) 25.9 kg/m2 06/13/2007 8:36am Weight 206.00 lb Weight 93.442 kg BP Systolic 120 mmHg BP Diastolic 70 mmHg Heart Rate 62 /min Height 75 inches 6'3" BMI (Body Mass Index) 25.7 kg/m2 02/09/2007 10:49am Weight 202.00 lb Weight 91.627 kg BP Systolic 146 mmHg BP Diastolic 82 mmHg Heart Rate 53 /min Height 75.5 inches 6'3.50" BMI (Body Mass Index) 24.9 kg/m2 08/16/2006 11:29am Weight 200.00 lb Weight 90.720 kg BP Systolic 132 mmHg BP Diastolic 76 mmHg Heart Rate 58 /min Height 75.5 inches 6'3.50" BMI (Body Mass Index) 24.7 kg/m2 O2 % BldC Oximetry 98 % 05/19/2006 8:54am Weight 212.00 lb Weight 96.163 kg BP Systolic 142 mmHg BP Diastolic 78 mmHg Heart Rate 68 /min Height 75.5 inches 6'3.50" BMI (Body Mass Index) 26.1 kg/m2 04/14/2006 9:28am Weight 220.00 lb Weight 99.792 kg BP Systolic 168 mmHg BP Diastolic 86 mmHg Heart Rate 72 /min Height 75.5 inches 6'3.50" BMI (Body Mass Index) 27.1 kg/m2 03/31/2006 5:41pm BP Systolic 160 mmHg 180/100 BP Diastolic 100 mmHg 180/100 Height 75.5 inches 6'3.50" 09/28/2005 10:12am BP Systolic 144 mmHg BP Diastolic 82 mmHg Heart Rate 72 /min Body Temperature 97.6 F Height 75.5 inches 6'3.50" 01/26/2005 8:35am Weight 218.00 lb Weight 98.885 kg BP Systolic 130 mmHg BP Diastolic 80 mmHg Heart Rate 74 /min Respiratory Rate 18 /min Height 75.5 inches 6'3.50" BMI (Body Mass Index) 26.9 kg/m2 06/03/2004 3:38pm Weight 218.00 lb Weight 98.885 kg BP Systolic 132 mmHg BP Diastolic 86 mmHg Body Temperature 98.9 F Height 75 inches 6'3" BMI (Body Mass Index) 27.2 kg/m2 11/13/2003 9:15am Weight 213.00 lb Weight 96.617 kg BP Systolic 160 mmHg BP Diastolic 90 mmHg Heart Rate 60 /min Respiratory Rate 18 /min Height 75 inches 6'3" BMI (Body Mass Index) 26.6 kg/m2 Results Test Date Facility Test Result H/L Range Note Urine Culture And 01/26/2018 [facility] Urine Culture SEE RESULT 1 Sensitivities [phone] BELOW Urine DIP 01/26/2018 [facility] Leukocytes neg Neg (607)- - Urine Nitrites neg Neg Urobilinogen norm Norm Total Protein, Urine trace Neg Urine pH 5 5-6 Urine Blood neg Neg Specific Dyer 1.025 High 1.01-1.02 Urine Ketones neg Neg Urine Bilirubin + Neg Urine Glucose norm Norm Urine DIP 11/21/2017 [facility] House Lab Leukocytes + Neg (607)- - Urine Nitrites Neg Neg Urobilinogen Norm Norm Total Protein, Urine Neg Neg Urine pH 5 5-6 Urine Blood 250 High Neg Specific Dyer 1.020 1.01-1.02 Urine Ketones Neg Neg Urine Bilirubin Neg Neg Urine Glucose Norm Norm Urine Culture And 11/21/2017 [facility] Urine Culture SEE RESULT 2 Sensitivities [phone] BELOW Hla B27 09/21/2017 [facility] Hla B27 Negative 3 [phone] Hla B27 Interp See Comment 4 CBC Auto Diff 09/21/2017 [facility] White Blood 5.2 10^3/uL N 3.5-10.8 [phone] Count Red Blood Count 4.93 10^6/uL N 4.00-5.40 Hemoglobin 16.1 g/dL N 14.0-18.0 Hematocrit 47 % N 42-52 Mean Corpuscular Volume 95 fL High 80-94 Mean Corpuscular Hemoglobin 33 pg High 27-31 Mean Corpuscular HGB Conc 34 g/dL N 31-36 Red Cell Distribution Width 14 % N 10.5-15 Platelet Count 196 10^3/uL N 150-450 Mean Platelet Volume 7.7 um3 N 7.4-10.4 Abs Neutrophils 3.4 10^3/uL N 1.5-7.7 Abs Lymphocytes 1.1 10^3/uL N 1.0-4.8 Abs Monocytes 0.6 10^3/uL N 0-0.8 Abs Eosinophils 0.1 10^3/uL N 0-0.6 Abs Basophils 0 10^3/uL N 0-0.2 Abs Nucleated RBC 0 10^3/uL Granulocyte % 65.5 % N 38-83 Lymphocyte % 21.4 % Low 25-47 Monocyte % 11.2 % High 0-7 Eosinophil % 1.5 % N 0-6 Basophil % 0.4 % N 0-2 Nucleated Red Blood Cells % 0 Comp Metabolic Panel 09/21/2017 [facility] Sodium 136 mmol/L N 135-145 [phone] Potassium 4.6 mmol/L N 3.5-5.0 Chloride 99 mmol/L Low 101-111 Co2 Carbon Dioxide 30 mmol/L N 22-32 Anion Gap 7 mmol/L N 2-11 Glucose 100 mg/dL N 70-100 Blood Urea Nitrogen 13 mg/dL N 6-24 Creatinine 0.93 mg/dL N 0.67-1.17 BUN/Creatinine Ratio 14.0 N 8-20 Calcium 9.2 mg/dL N 8.6-10.3 Total Protein 6.6 g/dL N 6.4-8.9 Albumin 4.1 g/dL N 3.2-5.2 Globulin 2.5 g/dL N 2-4 Albumin/Globulin Ratio 1.6 N 1-3 Total Bilirubin 1.70 mg/dL High 0.2-1.0 Alkaline Phosphatase 93 U/L N 34-104 Alt 18 U/L N 7-52 Ast 17 U/L N 13-39 Egfr Non- 79.0 >60 Egfr 95.6 >60 5 Comp Metabolic Panel 07/20/2016 [facility] Sodium 137 mmol/L N 133-145 [phone] Potassium 3.9 mmol/L N 3.5-5.0 Chloride 100 mmol/L Low 101-111 Co2 Carbon Dioxide 31 mmol/L N 22-32 Anion Gap 6 mmol/L N 2-11 Glucose 105 mg/dL High 70-100 Blood Urea Nitrogen 20 mg/dL N 6-24 Creatinine 0.88 mg/dL N 0.67-1.17 BUN/Creatinine Ratio 22.7 High 8-20 Calcium 8.9 mg/dL N 8.6-10.3 Total Protein 6.6 g/dL N 6.4-8.9 Albumin 4.0 g/dL N 3.2-5.2 Globulin 2.6 g/dL N 2-4 Albumin/Globulin Ratio 1.5 N 1-3 Total Bilirubin 1.70 mg/dL High 0.2-1.0 Alkaline Phosphatase 80 U/L N 34-104 Alt 6 U/L Low 7-52 Ast 18 U/L N 13-39 Egfr Non- 84.4 N >60 Egfr 108.6 N >60 6 Lipid Profile 07/20/2016 [facility] Triglycerides 51 mg/dL N 7 (Trig/Chol/HDL) [phone] Cholesterol 189 mg/dL N 8 HDL Cholesterol 60.2 mg/dL N 9 LDL Cholesterol 119 mg/dL N 10 Laboratory test 07/20/2016 [facility] Hemoglobin A1c 5.6 % N Less than 11 finding [phone] (Glyco HGB) 6.0 CBC Auto Diff 07/20/2016 [facility] White Blood 5.2 N 3.5-10.8 [phone] Count 10^3/uL Red Blood Count 4.73 10^6/uL N 4.0-5.4 Hemoglobin 15.2 g/dL N 14.0-18.0 Hematocrit 45 % N 42-52 Mean Corpuscular Volume 96 fL High 80-94 Mean Corpuscular Hemoglobin 32 pg High 27-31 Mean Corpuscular HGB Conc 34 g/dL N 31-36 Red Cell Distribution Width 14 % N 10.5-15 Platelet Count 183 10^3/uL N 150-450 Mean Platelet Volume 8 um3 N 7.4-10.4 Abs Neutrophils 2.7 10^3/uL N 1.5-7.7 Abs Lymphocytes 1.7 10^3/uL N 1.0-4.8 Abs Monocytes 0.5 10^3/uL N 0-0.8 Abs Eosinophils 0.2 10^3/uL N 0-0.6 Abs Basophils 0 10^3/uL N 0-0.2 Abs Nucleated RBC 0 10^3/uL N Granulocyte % 52.6 % N 38-83 Lymphocyte % 33.6 % N 25-47 Monocyte % 9.5 % High 1-9 Eosinophil % 3.6 % N 0-6 Basophil % 0.7 % N 0-2 Nucleated Red Blood Cells % 0.1 N CBC Auto Diff 12/18/2015 [facility] White Blood 5.5 10^3/uL N 3.5-10.8 [phone] Count Red Blood Count 4.68 10^6/uL N 4.0-5.4 Hemoglobin 15.0 g/dL N 14.0-18.0 Hematocrit 45 % N 42-52 Mean Corpuscular Volume 95 fL High 80-94 Mean Corpuscular Hemoglobin 32 pg High 27-31 Mean Corpuscular HGB Conc 34 g/dL N 31-36 Red Cell Distribution Width 14 % N 10.5-15 Platelet Count 224 10^3/uL N 150-450 Mean Platelet Volume 8 um3 N 7.4-10.4 Abs Neutrophils 3.5 10^3/uL N 1.5-7.7 Abs Lymphocytes 1.3 10^3/uL N 1.0-4.8 Abs Monocytes 0.6 10^3/uL N 0-0.8 Abs Eosinophils 0.1 10^3/uL N 0-0.6 Abs Basophils 0 10^3/uL N 0-0.2 Abs Nucleated RBC 0.01 10^3/uL N Granulocyte % 63.8 % N 38-83 Lymphocyte % 24.5 % Low 25-47 Monocyte % 10.1 % High 1-9 Eosinophil % 1.1 % N 0-6 Basophil % 0.5 % N 0-2 Nucleated Red Blood Cells % 0.1 N Comp Metabolic Panel 12/18/2015 [facility] Sodium 136 mmol/L N 133-145 [phone] Potassium 4.4 mmol/L N 3.5-5.0 Chloride 100 mmol/L Low 101-111 Co2 Carbon Dioxide 32 mmol/L N 22-32 Anion Gap 4 mmol/L N 2-11 Glucose 110 mg/dL High 70-100 Blood Urea Nitrogen 35 mg/dL High 6-24 Creatinine 0.93 mg/dL N 0.67-1.17 BUN/Creatinine Ratio 37.6 High 8-20 Calcium 9.5 mg/dL N 8.6-10.3 Total Protein 7.2 g/dL N 6.4-8.9 Albumin 4.4 g/dL N 3.2-5.2 Globulin 2.8 g/dL N 2-4 Albumin/Globulin Ratio 1.6 N 1-3 Total Bilirubin 1.60 mg/dL High 0.2-1.0 Alkaline Phosphatase 78 U/L N 34-104 Alt 10 U/L N 7-52 Ast 20 U/L N 13-39 Egfr Non- 79.4 N >60 Egfr 102.1 N >60 12 Laboratory test 12/18/2015 [facility] TSH (Thyroid 1.45 N 0.34-5.60 finding [phone] Stimulating mcIU/mL Horm) B-Type Natriuretic Peptide BNP 11 pg/mL N 13 Comp Metabolic Panel 07/17/2015 [facility] Sodium 137 mmol/L N 133-145 [phone] Potassium 4.0 mmol/L N 3.5-5.0 Chloride 100 mmol/L Low 101-111 Co2 Carbon Dioxide 30 mmol/L N 22-32 Anion Gap 7 mmol/L N 2-11 Glucose 103 mg/dL High 70-100 Blood Urea Nitrogen 17 mg/dL N 6-24 Creatinine 0.79 mg/dL N 0.67-1.17 BUN/Creatinine Ratio 21.5 High 8-20 Calcium 9.4 mg/dL N 8.6-10.3 Total Protein 6.7 g/dL N 6.4-8.9 Albumin 4.4 g/dL N 3.2-5.2 Globulin 2.3 g/dL N 2-4 Albumin/Globulin Ratio 1.9 N 1-3 Total Bilirubin 1.40 mg/dL High 0.2-1.0 Alkaline Phosphatase 72 U/L N 34-104 Alt 16 U/L N 7-52 Ast 18 U/L N 13-39 Egfr Non- 95.9 N >60 Egfr 123.3 N >60 14 Lipid Profile 07/17/2015 [facility] Triglycerides 60 mg/dL N 15 (Trig/Chol/HDL) [phone] Cholesterol 172 mg/dL N 16 HDL Cholesterol 55.8 mg/dL N 17 LDL Cholesterol 104 mg/dL N 18 Laboratory test 07/17/2015 [facility] Hemoglobin A1c 5.5 % N Less than 19 finding [phone] (Glyco HGB) 6.0 CBC Auto Diff 07/17/2015 [facility] White Blood 4.5 N 3.5-10.8 [phone] Count 10^3/uL Red Blood Count 4.56 10^6/uL N 4.0-5.4 Hemoglobin 14.7 g/dL N 14.0-18.0 Hematocrit 44 % N 42-52 Mean Corpuscular Volume 96 fL High 80-94 Mean Corpuscular Hemoglobin 32 pg High 27-31 Mean Corpuscular HGB Conc 34 g/dL N 31-36 Red Cell Distribution Width 14 % N 10.5-15 Platelet Count 185 10^3/uL N 150-450 Mean Platelet Volume 8 um3 N 7.4-10.4 Abs Neutrophils 2.5 10^3/uL N 1.5-7.7 Abs Lymphocytes 1.4 10^3/uL N 1.0-4.8 Abs Monocytes 0.4 10^3/uL N 0-0.8 Abs Eosinophils 0.2 10^3/uL N 0-0.6 Abs Basophils 0 10^3/uL N 0-0.2 Abs Nucleated RBC 0 10^3/uL N Granulocyte % 55.1 % N 38-83 Lymphocyte % 30.9 % N 25-47 Monocyte % 9.6 % High 1-9 Eosinophil % 3.6 % N 0-6 Basophil % 0.8 % N 0-2 Nucleated Red Blood Cells % 0 N Laboratory test 07/17/2015 [facility] Vitamin D 44.7 ng/mL N 30-50 20 finding [phone] Total 25(Oh) CBC With 05/29/2014 [facility] White Blood 4.6 Low 4.8-10.8 21 Electronic Diff [phone] Count 10^3/uL Red Blood Count 4.55 10^6/uL N 4.0-5.4 Hemoglobin 15.0 g/dL N 14.0-18.0 Hematocrit 44 % N 42-52 Mean Corpuscular Volume 97 fL High 80-94 Mean Corpuscular Hemoglobin 33 pg High 27-31 Mean Corpuscular HGB Conc 34 g/dL N 31-36 Red Cell Distribution Width 13 % N 10.5-15 Platelet Count 200 10^3/uL N 150-450 Mean Platelet Volume 8 um3 N 7.4-10.4 Comp Metabolic Panel 05/29/2014 [facility] Sodium 138 mmol/L N 133-145 [phone] Potassium 4.2 mmol/L N 3.5-5.0 Chloride 101 mmol/L N 101-111 Co2 Carbon Dioxide 33 mmol/L High 22-32 Anion Gap 4 mmol/L N 2-11 Glucose 117 mg/dL High 70-100 Blood Urea Nitrogen 23 mg/dL N 6-24 Creatinine 0.81 mg/dL N 0.67-1.17 BUN/Creatinine Ratio 28.4 High 8-20 Calcium 9.0 mg/dL N 8.6-10.3 Total Protein 6.7 g/dL N 6.4-8.9 Albumin 4.2 g/dL N 3.2-5.2 Globulin 2.5 g/dL N 2-4 Albumin/Globulin Ratio 1.7 N 1-3 Total Bilirubin 1.20 mg/dL High 0.2-1.0 Alkaline Phosphatase 82 U/L N 34-104 Alt 6 U/L Low 7-52 Ast 16 U/L N 13-39 Egfr Non- 93.4 N >60 Egfr 120.1 N >60 22 Lipid Profile 05/29/2014 [facility] Triglycerides 72 mg/dL N 23 (Trig/Chol/HDL) [phone] Cholesterol 194 mg/dL N 24 HDL Cholesterol 56.4 mg/dL N 25 LDL Cholesterol 123 mg/dL N 26 Laboratory test 05/29/2014 [facility] Hemoglobin A1c 6.0 % N Less than 27 finding [phone] 6.0 Vitamin D, 25 05/29/2014 [facility] 25-Hydroxy <4.0 N Hydroxy [phone] Vitamin D2 ng/mL 25-Hydroxy Vitamin D3 38 ng/mL N 25-Hydroxy Vitamin D Total 38 ng/mL N 28 Urine DIP 06/19/2013 In House Lab Specific Dyer 1.015 1.01-1.02 (607)- - Urine pH 6 5-6 Leukocytes NEG Neg Urine Nitrites NEG Neg Total Protein, Urine NEG Neg Urine Glucose NORM Norm Urine Ketones NEG Neg Urobilinogen NORM Norm Urine Bilirubin NEG Neg Urine Blood TRACE Neg CBC With 06/12/2013 [facility] White Blood 4.6 10^3/ uL Low 4.8-10.8 Electronic Diff [phone] Count Red Blood Count 4.52 10^6/uL 4.0-5.4 Hemoglobin 14.9 g/dL 14.0-18.0 Hematocrit 43 % 42-52 Mean Corpuscular Volume 96 fL High 80-94 Mean Corpuscular Hemoglobin 33 pg High 27-31 Mean Corpuscular HGB Conc 34 g/dL 31-36 Red Cell Distribution Width 13 % 10.5-15 Platelet Count 184 10^3/uL 150-450 Mean Platelet Volume 8 um3 7.4-10.4 Comp Metabolic Panel 06/12/2013 [facility] Sodium 138 mmol/L 133-145 [phone] Potassium 3.7 mmol/L 3.7-5.6 Chloride 100 mmol/L Low 101-111 Co2 Carbon Dioxide 35 mmol/L High 22-32 Anion Gap 3 mmol/L 2-11 Glucose 112 mg/dL High 70-100 Blood Urea Nitrogen 21 mg/dL 6-24 Creatinine 0.83 mg/dL 0.67-1.17 BUN/Creatinine Ratio 25.3 High 8-20 Calcium 9.1 mg/dL 8.6-10.3 Total Protein 6.9 g/dL 6.4-8.9 Albumin 4.4 g/dL 3.2-5.2 Globulin 2.5 g/dL 2-4 Albumin/Globulin Ratio 1.8 1-3 Total Bilirubin 1.70 mg/dL High 0.2-1.0 Alkaline Phosphatase 80 U/L 34-104 Alt 5 U/L Low 7-52 Ast 18 U/L 13-39 Egfr Non- 91.1 >60 Egfr 117.1 >60 29 Lipid Profile 06/12/2013 [facility] Triglycerides 76 mg/dL 30 (Trig/Chol/HDL) [phone] Cholesterol 182 mg/dL 31 HDL Cholesterol 58.4 mg/dL 32 LDL Cholesterol 108 mg/dL 33 Laboratory test 06/12/2013 [facility] PSA Screening 0.756 ng/mL 0-4.000 34 finding [phone] Hemoglobin A1c 5.4 % Less than 6.0 35 Basic Metabolic 08/22/2012 [facility] Sodium 134 mmol /L 133-145 Panel [phone] Potassium 4.0 mmol/L 3.5-5.0 Chloride 98 mmol/L Low 101-111 Co2 Carbon Dioxide 30.0 mmol/L 22-32 Anion Gap 6.0 mmol/L 2-11 Glucose 153 mg/dL High 70-100 Blood Urea Nitrogen 14 mg/dL 6-24 Creatinine 0.70 mg/dL 0.50-1.40 BUN/Creatinine Ratio 20.0 8-20 Calcium 9.2 mg/dL 8.1-9.9 Egfr Non- 111.2 >60 Egfr 143.0 >60 36 Urine DIP 06/15/2012 In House Lab Leukocytes trace Neg (607)- - Urine Nitrites neg Neg Urine pH 6 5-6 Total Protein, Urine trace Neg Urine Glucose norm Norm Urine Ketones neg Neg Urobilinogen 4 High Norm Urine Bilirubin neg Neg Urine Blood trace Neg Specific Dyer 1.025 High 1.01-1.02 CBC With 05/30/2012 [facility] White Blood 5.9 10^3/ uL 4.8-10.8 Electronic Diff [phone] Count Red Blood Count 4.52 10^6/uL 4.0-5.4 Hemoglobin 15.2 g/dL 14.0-18.0 Hematocrit 44 % 42-52 Mean Corpuscular Volume 96 fL High 80-94 Mean Corpuscular Hemoglobin 34 pg High 27-31 Mean Corpuscular HGB Conc 35 g/dL 31-36 Red Cell Distribution Width 13 % 10.5-15 Platelet Count 169 10^3/uL 150-450 Mean Platelet Volume 8 um3 7.4-10.4 Comp Metabolic Panel 05/30/2012 [facility] Sodium 136 mmol/L 133-145 [phone] Potassium 3.7 mmol/L 3.5-5.0 Chloride 98 mmol/L Low 101-111 Co2 Carbon Dioxide 31.0 mmol/L 22-32 Anion Gap 7.0 mmol/L 2-11 Glucose 107 mg/dL High 70-100 Blood Urea Nitrogen 15 mg/dL 6-24 Creatinine 0.80 mg/dL 0.50-1.40 BUN/Creatinine Ratio 18.8 8-20 Calcium 9.2 mg/dL 8.1-9.9 Total Protein 6.3 g/dL 6.2-8.1 Albumin 4.0 g/dL 3.2-5.2 Globulin 2.3 g/dL 2-4 Albumin/Globulin Ratio 1.7 1-3 Total Bilirubin 2.3 mg/dL High 0.4-1.5 Alkaline Phosphatase 73 U/L 30-110 Alt 23 U/L 14-54 Ast 22 U/L 12-42 Egfr Non- 95.3 >60 Egfr 122.6 >60 37 Lipid Profile 05/30/2012 [facility] Triglycerides 44 mg/dL 40-200 (Trig/Chol/HDL) [phone] Cholesterol 183 mg/dL Less than 200 HDL Cholesterol 57 mg/dL 40-60 38 Cholesterol/HDL Ratio 3.2 Average 1-4.44 LDL Cholesterol 117.2 mg/dL High Less Than 100 39 Laboratory test 05/30/2012 [facility] PSA Screening 0.6 ng/mL 0-4.0 40 finding [phone] Urine Immunofixation 05/12/2012 [facility] Urine Pattern (SEE NOTE) 41 Random [phone] Suggests: Urine Random Total Protein 11 mg/dL RD Urine Immunofixation (SEE NOTE) 42 Laboratory test 05/12/2012 [facility] Erythrocyte Sed 5 mm/Hr 0-40 43 finding [phone] Rate Hemoglobin A1c 5.8 % Less than 6.0 44 Lyme Disease Serology Negative Negative 45 Shannon (Anti-Nuclear AB) Screen Negative Negative 46 Immunofixation 05/12/2012 [facility] Albumin 3.37 g/ dL 3.0-4.35 (Electro) Serum [phone] (Pep) Alpha 1 Globulins 0.11 g/dL 0.09-0.33 Alpha 2 Globulin 0.89 g/dL 0.59-1.18 Beta Globulin 0.76 g/dL 0.68-1.02 Gamma Globulin 1.27 g/dL 0.76-1.60 Albumin % (Pep) 52.7 % 46-63 Alpha 1 Globulins % 1.7 % 1.2-5.3 Alpha 2 Globulin % 13.9 % 9-17 Beta Globulin % 11.9 % 10-16 Gamma Globulin % 19.8 % 12-22 Albumin/Globulin Ratio 1.1 0.9-2.0 Total Protein (Pep) 6.4 g/dL 6.2-8.1 Spep Comments (SEE NOTE) 47 Serum Immunofixation (SEE NOTE) 48 Urine Immunofixation 05/12/2012 [facility] Urine Pattern TNP 49 Random [phone] Suggests: Urine Random Total Protein TNP mg/dL RD Urine Immunofixation TNP Laboratory test 03/07/2012 [facility] TSH (Thyroid 1.38 0.34-5.60 finding [phone] Stimulating miu/mL Horm) Vitamin B12 399 pg/mL [phone] Folate 18.3 ng/mL High 2-16 Protein 03/07/2012 [facility] Albumin 3.86 g/dL 3.0-4.35 Electrophoresis Serum [phone] (Pep) Alpha 1 Globulins 0.21 g/dL 0.09-0.33 Alpha 2 Globulin 0.84 g/dL 0.59-1.18 Beta Globulin 0.75 g/dL 0.68-1.02 Gamma Globulin 1.44 g/dL 0.76-1.60 Albumin % (Pep) 54.4 % 46-63 Alpha 1 Globulins % 3.0 % 1.2-5.3 Alpha 2 Globulin % 11.8 % 9-17 Beta Globulin % 10.6 % 10-16 Gamma Globulin % 20.3 % 12-22 Albumin/Globulin Ratio 1.2 0.9-2.0 Total Protein (Pep) 7.1 g/dL 6.2-8.1 Spep Comments (SEE NOTE) 50 Urine DIP 06/18/2011 In House Lab Leukocytes NEG Neg (607)- - Urine Nitrites NEG Neg Urine pH 5 5-6 Total Protein, Urine NEG Neg Urine Glucose NORM Norm Urine Ketones NEG Neg Urobilinogen NORM Norm Urine Bilirubin NEG Neg Urine Blood NEG Neg Specific Dyer N/A Low 1.01-1.02 Surgical 06/17/2011 [facility] Surgical --- 51 Pathology [phone] Pathology <SEE NOTE> Liver Function 06/04/2011 [facility] Bilirubin 0.3 mg /dL 0.1- Panel [phone] Direct 0.5 Indirect Bilirubin 2.9 mg/dL High 0.3-1.0 52 Laboratory test 06/04/2011 [facility] PSA 0.43 NG/ML 0-4 53 finding [phone] Lipid Profile 06/04/2011 [facility] Triglyceride 80 mg/dL 40-200 (Trig/Chol/HDL) [phone] Cholesterol 201 mg/dL High Less Than 200 54 High Density Lipoprotein 55 mg/dL 40-60 55 Cholesterol/HDL Ratio 3.65 AVERAGE 1-4.97 Low Density Lipoprotein 130 mg/dL High Less Than 100 56 Comp Metabolic 06/04/2011 [facility] Sodium 130 mmol/ L Low 135-145 Panel [phone] Potassium 3.9 mmol/L 3.5-5.0 Chloride 95 mmol/L Low 101-111 Co2 (Carbon Dioxide) 29.0 mmol/L 22-32 Anion Gap 6.0 mmol/L 2-11 57 Glucose 109 mg/dL High 70-100 BUN 13 mg/dL 6-24 Creatinine 0.8 mg/dL 0.50-1.40 One Over Creatinine 1.25 BUN/Creatinine Ratio 16.3 8-20 Calcium 9.1 mg/dL 8.1-9.9 Total Protein 6.9 GM/DL 6.2-8.1 Albumin 4.4 GM/DL 3.2-5.2 Globulin 2.5 GM/DL 2-4 Albumin/Globulin Ratio 1.8 1-3 Bilirubin Total 3.2 mg/dL High 0.4-1.5 58 Alkaline Phosphatase 78 U/L 39-117 Alt (SGPT) 22 U/L 17-63 Ast (Sgot) 22 U/L 12-42 eGFR Non- 95.6 > 60 eGFR 122.9 > 60 59 CBC With 06/04/2011 [facility] White Blood 5.0 CUMM 4.8-10.8 Electronic Diff [phone] Count Red Cell Count 4.65 CUMM 4.6-6.2 Hemoglobin 15.8 g/dL 14.0-18.0 Hematocrit 45 % 42-52 Mean Corpuscular Volume 96 um3 High 80-94 Mean Corpuscular Hemoglob 34 pg High 27-31 Mean Corpuscular HGB Cone 35 g/dL 32-36 Redcell Distribution WDTH 13 % 10.5-15 Platelet Count 202 CUMM 150-450 Mean Platelet Volume 8.0 um3 7.4-10.4 Gran % 55.7 % 38-83 Lymph % 30.8 % 25-47 Mononuclear % 9.5 % High 1-9 Eosinophil % 3.5 % 0-6 Basophil % 0.5 % 0-2 Abs Lymphs 1.5 1.0-4.8 Abs Mononuclear 0.5 0-0.8 Absolute Neutrophil Count 2.8 1.5-7.7 Abs Eosinophils 0.2 0-0.6 Abs Basophils 0 0-0.2 Comp Metabolic 11/26/2010 [facility] Sodium 134 mmol/ L Low 135-145 60 Panel [phone] Potassium 3.8 mmol/L 3.5-5.0 Chloride 98 mmol/L Low 101-111 Co2 (Carbon Dioxide) 30.0 mmol/L 22-32 Anion Gap 6.0 mmol/L 2-11 61 Glucose 109 mg/dL High 70-100 BUN 13 mg/dL 6-24 Creatinine 0.8 mg/dL 0.50-1.40 One Over Creatinine 1.25 BUN/Creatinine Ratio 16.3 8-20 Calcium 9.3 mg/dL 8.1-9.9 Total Protein 6.6 GM/DL 6.2-8.1 Albumin 4.4 GM/DL 3.2-5.2 Globulin 2.2 GM/DL 2-4 Albumin/Globulin Ratio 2.0 1-3 Bilirubin Total 3.0 mg/dL High 0.4-1.5 62 Alkaline Phosphatase 76 U/L 39-117 Alt (SGPT) 23 U/L 17-63 Ast (Sgot) 25 U/L 12-42 eGFR Non- 95.8 > 60 eGFR 123.3 > 60 63 Laboratory test 11/26/2010 [facility] Hemoglobin A1c 5.5 % Less Than 64 finding [phone] 6.0 Basic Metabolic 08/17/2010 [facility] Sodium 133 Low 135-145 Panel [phone] mmol/L Potassium 4.2 mmol/L 3.5-5.0 Chloride 98 mmol/L Low 101-111 Co2 (Carbon Dioxide) 31.0 mmol/L 22-32 Anion Gap 4.0 mmol/L 2-11 65 Glucose 92 mg/dL 70-100 BUN 10 mg/dL 6-24 Creatinine 0.60 mg/dL 0.50-1.40 One Over Creatinine 1.60 BUN/Creatinine Ratio 16.7 8-20 Calcium 9.2 mg/dL 8.1-9.9 eGFR Non- 133.6 > 60 eGFR 171.8 > 60 66 Urine DIP 06/03/2010 In House Lab Leukocytes neg Neg (607)- - Urine Nitrites neg Neg Urine pH 5 5-6 Total Protein, Urine neg Neg Urine Glucose norm Norm Urine Ketones neg Neg Urobilinogen norm Norm Urine Bilirubin neg Neg Urine Blood neg Neg Specific Dyer na Low 1.01-1.02 Laboratory test 05/27/2010 [facility] PSA Screening 0.40 NG/ML 0-4 67 finding [phone] Lipid Profile 05/27/2010 [facility] Triglyceride 50 mg/dL 40-200 (Trig/Chol/HDL) [phone] Cholesterol 187 mg/dL Less Than 200 68 High Density Lipoprotein 60 mg/dL 40-60 69 Cholesterol/HDL Ratio 3.12 AVERAGE 1-4.97 Low Density Lipoprotein 117 mg/dL High Less Than 100 70 Comp Metabolic 05/27/2010 [facility] Sodium 133 mmol/ L Low 135-145 Panel [phone] Potassium 4.1 mmol/L 3.5-5.0 Chloride 100 mmol/L Low 101-111 Co2 (Carbon Dioxide) 28.0 mmol/L 22-32 Anion Gap 5.0 mmol/L 2-11 71 Glucose 118 mg/dL High 70-100 BUN 10 mg/dL 6-24 Creatinine 0.70 mg/dL 0.50-1.40 One Over Creatinine 1.40 BUN/Creatinine Ratio 14.3 8-20 Calcium 8.8 mg/dL 8.1-9.9 Total Protein 6.7 GM/DL 6.2-8.1 Albumin 4.1 GM/DL 3.2-5.2 Globulin 2.6 GM/DL 2-4 Albumin/Globulin Ratio 1.6 1-3 Bilirubin Total 2.5 mg/dL High 0.4-1.5 72 Alkaline Phosphatase 84 U/L 39-117 Alt (SGPT) 21 U/L 17-63 Ast (Sgot) 21 U/L 12-42 eGFR Non- 111.8 > 60 eGFR 143.8 > 60 73 CBC With 05/27/2010 [facility] White Blood 5.6 CUMM 4.8-10.8 Electronic Diff [phone] Count Red Cell Count 4.65 CUMM 4.6-6.2 Hemoglobin 15.4 g/dL 14.0-18.0 Hematocrit 45 % 42-52 Mean Corpuscular Volume 96 um3 High 80-94 Mean Corpuscular Hemoglob 33 pg High 27-31 Mean Corpuscular HGB Cone 35 g/dL 32-36 Redcell Distribution WDTH 13 % 10.5-15 Platelet Count 202 CUMM 150-450 Mean Platelet Volume 8.1 um3 7.4-10.4 Gran % 55.1 % 38-83 Lymph % 30.7 % 25-47 Mononuclear % 9.6 % High 1-9 Eosinophil % 3.9 % 0-6 Basophil % 0.7 % 0-2 Abs Lymphs 1.7 1.0-4.8 Abs Mononuclear 0.5 0-0.8 Absolute Neutrophil Count 3.1 1.5-7.7 Abs Eosinophils 0.2 0-0.6 Abs Basophils 0 0-0.2 Surgical 03/23/2010 [facility] Surgical --- 74 Pathology [phone] Pathology <SEE NOTE> Urine DIP 06/03/2009 In House Lab Leukocytes NEG Neg (607)- - Urine Nitrites NEG Neg Urine pH 5 5-6 Total Protein, Urine NL Neg Urine Glucose NL Norm Urine Ketones NL Neg Urobilinogen NL Norm Urine Bilirubin NL Neg Urine Blood NL Neg Specific [place] N/A Low 1.01-1.02 Lipid Profile 05/27/2009 [facility] Triglyceride 49 mg/dL 40-200 (Trig/Chol/HDL) [phone] Cholesterol 185 mg/dL Less Than 200 75 High Density Lipoprotein 56 mg/dL 40-60 76 Cholesterol/HDL Ratio 3.30 AVERAGE 1-4.97 Low Density Lipoprotein 119 mg/dL High Less Than 100 77 Laboratory test 05/27/2009 [facility] PSA Screening 0.37 NG/ML 0-4 78 finding [phone] Comp Metabolic 05/27/2009 [facility] Sodium 136 mmol/ L 135-145 Panel [phone] Potassium 3.6 mmol/L 3.5-5.0 Chloride 99 mmol/L Low 101-111 Co2 (Carbon Dioxide) 31.0 mmol/L 22-32 Anion Gap 6.0 mmol/L 2-11 79 Glucose 114 mg/dL High 70-100 80 BUN 15 mg/dL 6-24 Creatinine 0.70 mg/dL 0.50-1.40 One Over Creatinine 1.40 BUN/Creatinine Ratio 21.4 High 8-20 Calcium 9.2 mg/dL 8.1-9.9 81 Total Protein 6.3 GM/DL 6.2-8.1 Albumin 4.0 GM/DL 3.2-5.2 Globulin 2.3 GM/DL 2-4 Albumin/Globulin Ratio 1.7 1-3 Bilirubin Total 3.4 mg/dL High 0.4-1.5 82 Alkaline Phosphatase 73 U/L 39-117 Alt (SGPT) 23 U/L 17-63 Ast (Sgot) 22 U/L 12-42 eGFR Non- 119.2 > 60 eGFR 144.2 > 60 83 CBC With 05/27/2009 [facility] White Blood 4.4 CUMM Low 4.8-10.8 Electronic Diff [phone] Count Red Cell Count 4.71 CUMM 4.6-6.2 Hemoglobin 15.8 g/dL 14.0-18.0 Hematocrit 45 % 42-52 Mean Corpuscular Volume 96 um3 High 80-94 Mean Corpuscular Hemoglob 34 pg High 27-31 Mean Corpuscular HGB Cone 35 g/dL 32-36 Redcell Distribution WDTH 13 % 10.5-15 Platelet Count 208 CUMM 150-450 Mean Platelet Volume 7.7 um3 7.4-10.4 Gran % 59.4 % 38-83 Lymph % 27.3 % 25-47 Mononuclear % 10.6 % High 1-9 Eosinophil % 2.2 % 0-6 Basophil % 0.5 % 0-2 Abs Lymphs 1.2 1.0-4.8 Abs Mononuclear 0.5 0-0.8 Absolute Neutrophil Count 2.6 1.5-7.7 Abs Eosinophils 0.1 0-0.6 Abs Basophils 0 0-0.2 Basic Metabolic 11/04/2008 [facility] Sodium 135 mmol /L 135-145 Panel [phone] Potassium 4.3 mmol/L 3.5-5.0 Chloride 96 mmol/L Low 101-111 Co2 (Carbon Dioxide) 32.0 mmol/L 22-32 Anion Gap 7.0 mmol/L 2-11 84 Glucose 152 mg/dL High 70-100 85 BUN 10 mg/dL 6-24 Creatinine 0.80 mg/dL 0.50-1.40 One Over Creatinine 1.20 BUN/Creatinine Ratio 12.5 8-20 Calcium 9.6 mg/dL 8.1-9.9 86 eGFR Non- 102.5 > 60 eGFR 124.0 > 60 87 Creatinine 09/27/2008 [facility] Creatinine 0.80 mg/ dL 0.50-1.40 [phone] One Over Creatinine 1.20 eGFR Non- 102.5 > 60 eGFR 124.0 > 60 88 Laboratory test 09/27/2008 [facility] BUN 10 mg/dL 6-24 finding [phone] Urine DIP 06/05/2008 In House Lab Leukocytes neg Neg (607)- - Urine Nitrites neg Neg Urine pH 5 5-6 Total Protein, Urine neg Neg Urine Glucose norm Norm Urine Ketones neg Neg Urobilinogen norm Norm Urine Bilirubin neg Neg Urine Blood trace Neg Specific Dyer na Low 1.01-1.02 CBC With Manual 05/31/2008 [facility] White Blood 4.8 CUMM 4.8-10.8 Diff [phone] Count Red Cell Count 4.85 CUMM 4.6-6.2 Hemoglobin 15.9 g/dL 14.0-18.0 Hematocrit 46 % 42-52 Mean Corpuscular Volume 94 um3 80-94 Mean Corpuscular Hemoglob 33 pg High 27-31 Mean Corpuscular HGB Cone 35 g/dL 32-36 Redcell Distribution WDTH 13 % 10.5-15 Platelet Count 214 CUMM 150-450 Mean Platelet Volume 7.9 um3 7.4-10.4 Polysegmented Neutrophil 52 % 38-83 Lymphocyte 28 % 25-47 Monocyte 10 % 0-13 Eosenophil 7 % High 0-6 Atypical Lymph 3 % 0-6 Absolute Neutrophil Count 2.4 Anisocytosis SLIGHT Laboratory test 05/31/2008 [facility] PSA Screening 0.36 NG/ML 0-4 89 finding [phone] Comp Metabolic 05/31/2008 [facility] Sodium 140 mmol/ L 135-145 Panel [phone] Potassium 4.1 mmol/L 3.5-5.0 Chloride 103 mmol/L 101-111 Co2 (Carbon Dioxide) 32.0 mmol/L 22-32 Anion Gap 5.0 mmol/L 2-11 90 Glucose 109 mg/dL High 70-100 91 BUN 12 mg/dL 6-24 Creatinine 0.90 mg/dL 0.50-1.40 One Over Creatinine 1.10 BUN/Creatinine Ratio 13.3 8-20 Calcium 9.3 mg/dL 8.1-9.9 92 Total Protein 6.5 GM/DL 6.2-8.1 Albumin 4.0 GM/DL 3.2-5.2 Globulin 2.5 GM/DL 2-4 Albumin/Globulin Ratio 1.6 1-3 Bilirubin Total 2.7 mg/dL High 0.4-1.5 Alkaline Phosphatase 82 U/L 39-117 Alt (SGPT) 19 U/L 17-63 Ast (Sgot) 20 U/L 12-42 Lipid Profile 05/31/2008 [facility] Triglyceride 79 mg/dL 40-200 (Trig/Chol/HDL) [phone] Cholesterol 190 mg/dL Less Than 200 93 High Density Lipoprotein 49 mg/dL 40-60 94 Cholesterol/HDL Ratio 3.88 AVERAGE 1-4.97 Low Density Lipoprotein 125 mg/dL High Less Than 100 95 Urine DIP 06/13/2007 In House Lab Leukocytes NEG Neg (607)- - Urine Nitrites NEG Neg Urine pH 5 5-6 Total Protein, Urine NEG Neg Urine Glucose NORM Norm Urine Ketones NEG Neg Urobilinogen NORM Norm Urine Bilirubin NEG Neg Urine Blood NEG Neg Specific [place] N/A Low 1.01-1.02 Microalbumin 06/13/2007 [facility] Jose Martin Alb/Creatinine 2.4 UG/MG Less 96 Random Urine [phone] Ratio Than 30 Urine Creatinine 82.0 mg/dL Microalbumin (MG/L) 2.0 mg/L Lipid Profile 06/06/2007 [facility] Cholesterol/HDL 4.13 1-4.97 (Trig/Chol/HDL) [phone] Ratio AVERAGE Cholesterol 198 mg/dL Less Than 200 97 Triglyceride 77 mg/dL 40-200 High Density Lipoprotein 48 mg/dL 40-60 98 Low Density Lipoprotein 135 mg/dL High Less Than 100 99 Laboratory test 06/06/2007 [facility] PSA Screening 0.35 NG/ML 0-4 100 finding [phone] Comp Metabolic 06/06/2007 [facility] One Over 1.00 Panel [phone] Creatinine Anion Gap 0 mmol/L Low 2-11 101 Albumin/Globulin Ratio 1.3 1-3 Albumin 3.8 GM/DL 3.2-5.2 Alkaline Phosphatase 67 U/L 39-117 Alt (SGPT) 23 U/L 17-63 Ast (Sgot) 26 U/L 12-42 BUN 17 mg/dL 6-24 Calcium 8.7 mg/dL 8.7-10.2 Chloride 105 mmol/L 101-111 Co2 (Carbon Dioxide) 31.0 mmol/L 22-32 Globulin 2.9 GM/DL 2-4 Glucose 113 mg/dL High 70-105 Potassium 4.0 mmol/L 3.5-5.0 Sodium 136 mmol/L 135-145 Bilirubin Total 2.1 mg/dL High 0.4-1.5 Total Protein 6.7 GM/DL 6.2-8.1 BUN/Creatinine Ratio 17.0 8-20 Creatinine 1.0 mg/dL 0.5-1.4 Basic Metabolic 05/25/2006 [facility] One Over Creatinine 1.11 Panel [phone] Anion Gap 8.0 mmol/L 2-11 102 BUN 17 mg/dL 6-24 Calcium 9.1 mg/dL 8.7-10.2 Chloride 99 mmol/L Low 101-111 Co2 (Carbon Dioxide) 29.0 mmol/L 22-32 Glucose 148 mg/dL High 70-105 Potassium 4.0 mmol/L 3.5-5.0 Sodium 136 mmol/L 135-145 BUN/Creatinine Ratio 18.9 8-20 Creatinine 0.9 mg/dL 0.5-1.4 Microalbumin 05/19/2006 [facility] Jose Martin Alb/Creatinine 15.2 Less 103 Random Urine [phone] Ratio UG/MG Than 30 Urine Creatinine 19.7 mg/dL Microalbumin (MG/L) 3.0 mg/L CBC With 05/05/2006 [facility] White Blood 5.0 CUMM 4.8-10.8 Electronic Diff [phone] Count Abs Basophils 0 0-0.2 Abs Eosinophils 0.1 0-0.6 Absolute Neutrophil Count 2.6 1.5-7.7 Abs Lymphs 1.7 1.0-4.8 Abs Mononuclear 0.5 0-0.8 Basophil % 0.6 % 0-2 Hematocrit 46 % 42-52 Hemoglobin 16.1 g/dL 14.0-18.0 Eosinophil % 2.8 % 0-6 Gran % 53.1 % 38-83 Lymph % 33.5 % 20-45 Mean Corpuscular HGB Cone 35 g/dL 32-36 Mean Corpuscular Hemoglob 33 pg High 27-31 Mean Corpuscular Volume 93 um3 80-94 Mean Platelet Volume 8.2 um3 7.4-10.4 Mononuclear % 10.0 % High 1-9 Platelet Count 233 CUMM 150-450 Red Cell Count 4.92 CUMM 4.6-6.2 Redcell Distribution WDTH 14 % 10.5-15 Laboratory test 05/05/2006 [facility] TSH 2.19 MIU/ ML 0.34-5.60 finding [phone] Comp Metabolic 05/05/2006 [facility] One Over 1.00 Panel [phone] Creatinine Anion Gap 6.0 mmol/L 2-11 104 Albumin/Globulin Ratio 1.8 1-3 Albumin 4.3 GM/DL 3.2-5.2 Alkaline Phosphatase 70 U/L 39-117 Alt (SGPT) 24 U/L 17-63 Ast (Sgot) 28 U/L 12-42 BUN 16 mg/dL 6-24 Calcium 9.2 mg/dL 8.7-10.2 Chloride 101 mmol/L 101-111 Co2 (Carbon Dioxide) 32.0 mmol/L 22-32 Globulin 2.4 GM/DL 2-4 Glucose 121 mg/dL High 70-105 Potassium 4.4 mmol/L 3.5-5.0 Sodium 139 mmol/L 135-145 Bilirubin Total 2.0 mg/dL High 0.4-1.5 Total Protein 6.7 GM/DL 6.2-8.1 BUN/Creatinine Ratio 16.0 8-20 Creatinine 1.0 mg/dL 0.5-1.4 Laboratory test 05/05/2006 [facility] Hemoglobin A1c 5.8 % <6.0 105 finding [phone] PSA Screening 0.40 NG/ML 0.01-4.0 106 Lipid Profile 05/05/2006 [facility] Cholesterol/HDL 3.65 1-4.97 (Trig/Chol/HDL) [phone] Ratio AVERAGE Cholesterol 190 mg/dL Less Than 200 107 Triglyceride 61 mg/dL 40-200 High Density Lipoprotein 52 mg/dL 40-60 Low Density Lipoprotein 126 mg/dL High Less Than 100 108 Urine DIP 01/26/2005 In House Lab Leukocytes NEG Neg [phone] Urine Nitrites NEG Neg Urine pH 5 5-6 Total Protein, Urine NL Neg Urine Glucose NL Norm Urine Ketones NL Neg Urobolinogen NL Norm Urine Bilirubin NL Neg Urine Blood NL Neg Specific [place] N/A Low 1.01-1.02 Laboratory test 01/20/2005 [facility] PSA Screening 0.4 NG/ML 0-4 109, 110 finding [phone] CBC With 01/20/2005 [facility] White Blood 6.4 CUMM 4.8-10. Electronic Diff [phone] Count 8 Abs Basophils 0 0-0.2 Abs Eosinophils 0.3 0-0.6 Absolute Neutrophil Count 3.9 1.5-7.7 Abs Lymphs 1.6 1.0-4.8 Abs Mononuclear 0.5 0-0.8 Basophil % 0.6 % 0-2 Hematocrit 48 % 42-52 Hemoglobin 16.5 g/dL 14.0-18.0 Eosinophil % 4.2 % 0-6 Gran % 61.8 % 38-83 Lymph % 25.5 % 20-45 Mean Corpuscular HGB Cone 34 g/dL 32-36 Mean Corpuscular Hemoglob 33 pg High 27-31 Mean Corpuscular Volume 95 um3 High 80-94 Mean Platelet Volume 8.4 um3 7.4-10.4 Mononuclear % 7.9 % 1-9 Platelet Count 232 CUMM 150-450 Red Cell Count 5.05 CUMM 4.6-6.2 Redcell Distribution WDTH 14 % 10.5-15 Comp Metabolic 01/20/2005 [facility] One Over Creatinine 1.11 Panel [phone] Anion Gap 7.0 mmol/L 2-11 111 Albumin/Globulin Ratio 1.8 1-3 Albumin 4.3 GM/DL 3.2-5.2 Alkaline Phosphatase 96 U/L 39-117 Alt (SGPT) 28 U/L 17-63 Ast (Sgot) 23 U/L 12-42 BUN 16 mg/dL 6-24 Calcium 9.0 mg/dL 8.7-10.2 Chloride 103 mmol/L 101-111 Co2 (Carbon Dioxide) 29.0 mmol/L 22-32 Globulin 2.4 GM/DL 2-4 Glucose 110 mg/dL High 70-105 Potassium 3.9 mmol/L 3.5-5.0 Sodium 139 mmol/L 135-145 Bilirubin Total 1.3 mg/dL 0.4-1.5 Total Protein 6.7 GM/DL 6.2-8.1 BUN/Creatinine Ratio 17.8 8-20 Creatinine 0.9 mg/dL 0.5-1.4 Lipid Profile 01/20/2005 [facility] Cholesterol 208 mg/dL High Less 112 (Trig/Chol/HDL) [phone] Than 200 Triglyceride 78 mg/dL 40-200 High Density Lipoprotein 50 mg/dL 40-60 Low Density Lipoprotein 142 mg/dL High Less Than 100 113 Cholesterol/HDL Ratio 4.16 AVERAGE 1-4.97 Urine DIP 11/13/2003 In House Lab Leukocytes NEG Neg (607)- - Urine Nitrites NEG Neg Urine pH 5 5-6 Total Protein, Urine NEG Neg Urine Glucose NORM Norm Urine Ketones NEG Neg Urobolinogen NORM Norm Urine Bilirubin NEG Neg Urine Blood NEG Neg Specific Dyer NA Low 1.01-1.02 1 SEE RESULT BELOW Name: OLIVERANDREW S : [address]: Marcelo Fernando MD Acct: [id number] Unit: [id number] AGE: 77 Location: [facility] Re01/26/18 SEX: M Status: REG REF SPEC: [id number] TRACY: 01/26/[address]: Marcelo Fernando MD REQ: [id number] RECD: 01/26/18 STATUS: COMP _ SOURCE: URINE SPDESC: ORDERED: Urine Culture COMMENTS: [id number] Urine Source: Random Procedure Result Reported Site Urine Culture Final 01/27/18- 1600 ML No Growth (<1,000 CFU/mL) * ML - Main Lab . END OF REPORT DEPARTMENT OF PATHOLOGY, [address] [place] [address] Luis Antonio Durant M.D. Director MARTHA # [id number] 2 SEE RESULT BELOW Name: OLIVERANDREW Monse : [address]: Marcelo Fernando MD Acct: [id number] Unit: [id number] AGE: 77 Location: [facility] Re11/21/17 SEX: M Status: REG REF SPEC: [id number] TRACY: 11/21/17 [facility] DR: Marcelo Fernando MD REQ: [id number] RECD: 11/21/17 STATUS: COMP _ SOURCE: URINE SPDESC: ORDERED: Urine Culture COMMENTS: [id number] Urine Source: Random Procedure Result Reported Site Urine Culture Final 11/22/17- 1213 ML No Growth (<1,000 CFU/mL) * ML - Main Lab . END OF REPORT DEPARTMENT OF PATHOLOGY, [address] [place] [address] Luis Antonio Durant M.D. Director [facility] # [id number] 3 REFERENCE VALUE Not Applicable 4 RESULT: HLA-B27 antigen was not detected. ADDITIONAL INFORMATION Method: Flow Cytometry Performing Laboratory CLIA# [id number] Test Performed by: [address] [address] 5 Because ethnic data is not always readily available, this report includes an eGFR for both -Americans and non- Americans. The National Kidney Disease Education Program (NKDEP) does not endorse the use of the MDRD equation for patients that are not between the ages of 18 and 70, are , have extremes of body size, muscle mass, or nutritional status, or are non- or non-. According to the National Kidney Foundation, irrespective of diagnosis, the stage of the disease is based on the level of kidney function: Stage Description GFR(mL/min/1.73 m(2)) 1 Kidney damage with normal or decreased GFR 90 2 Kidney damage with mild decrease in GFR 60-89 3 Moderate decrease in GFR 30-59 4 Severe decrease in GFR 15-29 5 Kidney failure <15 (or dialysis) 6 Because ethnic data is not always readily available, this report includes an eGFR for both -Americans and non- Americans. The National Kidney Disease Education Program (NKDEP) does not endorse the use of the MDRD equation for patients that are not between the ages of 18 and 70, are , have extremes of body size, muscle mass, or nutritional status, or are non- or non-. According to the National Kidney Foundation, irrespective of diagnosis, the stage of the disease is based on the level of kidney function: Stage Description GFR(mL/min/1.73 m(2)) 1 Kidney damage with normal or decreased GFR 90 2 Kidney damage with mild decrease in GFR 60-89 3 Moderate decrease in GFR 30-59 4 Severe decrease in GFR 15-29 5 Kidney failure <15 (or dialysis) 7 Desirable <150 Borderline high 150-199 High 200-499 Very High >500 8 Desirable <200 Borderline high 200-239 High >239 9 Low <40 Desirable: 40-60 High: >60 10 Desirable: <100 mg/dL Near Optimal: 100-129 mg/dL Borderline High: 130-159 mg/dL High: 160-189 mg/dL Very High: >189 mg/dL 11 Therapeutic target for the treatment of diabetes Mellitus patients is <7% HBA1C, and in selective patients <6.0%.Please refer to [employer] Diabetic care guidelines for further information. 12 Because ethnic data is not always readily available, this report includes an eGFR for both -Americans and non- Americans. The National Kidney Disease Education Program (NKDEP) does not endorse the use of the MDRD equation for patients that are not between the ages of 18 and 70, are , have extremes of body size, muscle mass, or nutritional status, or are non- or non-. According to the National Kidney Foundation, irrespective of diagnosis, the stage of the disease is based on the level of kidney function: Stage Description GFR(mL/min/1.73 m(2)) 1 Kidney damage with normal or decreased GFR 90 2 Kidney damage with mild decrease in GFR 60-89 3 Moderate decrease in GFR 30-59 4 Severe decrease in GFR 15-29 5 Kidney failure <15 (or dialysis) 13 >100 to <200 pg/mL: likely compensated congestive heart failure (CHF) 200 to 400 pg/mL: likely moderate CHF >400 pg/mL: likely moderate to severe CHF 14 Because ethnic data is not always readily available, this report includes an eGFR for both -Americans and non- Americans. The National Kidney Disease Education Program (NKDEP) does not endorse the use of the MDRD equation for patients that are not between the ages of 18 and 70, are , have extremes of body size, muscle mass, or nutritional status, or are non- or non-. According to the National Kidney Foundation, irrespective of diagnosis, the stage of the disease is based on the level of kidney function: Stage Description GFR(mL/min/1.73 m(2)) 1 Kidney damage with normal or decreased GFR 90 2 Kidney damage with mild decrease in GFR 60-89 3 Moderate decrease in GFR 30-59 4 Severe decrease in GFR 15-29 5 Kidney failure <15 (or dialysis) 15 Desirable <150 Borderline high 150-199 High 200-499 Very High >500 16 Desirable <200 Borderline high 200-239 High >239 17 Low <40 Desirable: 40-60 High: >60 18 Desirable: <100 mg/dL Near Optimal: 100-129 mg/dL Borderline High: 130-159 mg/dL High: 160-189 mg/dL Very High: >189 mg/dL 19 Therapeutic target for the treatment of diabetes Mellitus patients is <7% HBA1C, and in selective patients <6.0%.Please refer to [employer] Diabetic care guidelines for further information. 20 [facility] [address] FASTING Copy Result to: DEZ MAHMOOD ([id number]) 21 FASTING 1519.FASTING 22 Because ethnic data is not always readily available, this report includes an eGFR for both -Americans and non- Americans. The National Kidney Disease Education Program (NKDEP) does not endorse the use of the MDRD equation for patients that are not between the ages of 18 and 70, are , have extremes of body size, muscle mass, or nutritional status, or are non- or non-. According to the National Kidney Foundation, irrespective of diagnosis, the stage of the disease is based on the level of kidney function: Stage Description GFR(mL/min/1.73 m(2)) 1 Kidney damage with normal or decreased GFR 90 2 Kidney damage with mild decrease in GFR 60-89 3 Moderate decrease in GFR 30-59 4 Severe decrease in GFR 15-29 5 Kidney failure <15 (or dialysis) 23 Desirable <150 Borderline high 150-199 High 200-499 Very High >500 24 Desirable <200 Borderline high 200-239 High >239 25 Low <40 Desirable: 40-60 High: >60 26 Desirable: <100 mg/dL Near Optimal: 100-129 mg/dL Borderline High: 130-159 mg/dL High: 160-189 mg/dL Very High: >189 mg/dL 27 Therapeutic target for the treatment of diabetes Mellitus patients is <7% HBA1C, and in selective patients <6.0%.Please refer to [employer] Diabetic care guidelines for further information. 28 REFERENCE VALUE 25-HYDROXY D TOTAL (D2+D3) Optimum levels in the healthy population are 20-50, patients with bone disease may benefit from higher levels within this range. Test Performed by: [place] [address] Offshoring Manager: Noel Estrada II, M.D., Ph.D. 29 Because ethnic data is not always readily available, this report includes an eGFR for both -Americans and non- Americans. The National Kidney Disease Education Program (NKDEP) does not endorse the use of the MDRD equation for patients that are not between the ages of 18 and 70, are , have extremes of body size, muscle mass, or nutritional status, or are non- or non-. According to the National Kidney Foundation, irrespective of diagnosis, the stage of the disease is based on the level of kidney function: Stage Description GFR(mL/min/1.73 m(2)) 1 Kidney damage with normal or decreased GFR 90 2 Kidney damage with mild decrease in GFR 60-89 3 Moderate decrease in GFR 30-59 4 Severe decrease in GFR 15-29 5 Kidney failure <15 (or dialysis) 30 Desirable <150 Borderline high 150-199 High 200-499 Very High >500 31 Desirable <200 Borderline high 200-239 High >239 32 Low <40 Desirable: 40-60 High: >60 33 Desirable <100 Near Optimal 100-129 Borderline high 130-159 High 160-189 Very High >189 34 Serum levels of PSA measured using the [employer] DXI Hybritech immunoassay should not be interpreted as absolute evidence of the presence or absence of disease. The PSA value should be used in conjunction with other pertinent clinical diagnostic procedures. The values obtained with different assay methods or kits cannot be used interchangeably. 35 Therapeutic target for the treatment of diabetes Mellitus patients is <7% HBA1C, and in selective patients <6.0%.Please refer to [employer] Diabetic care guidelines for further information. 36 Because ethnic data is not always readily available, this report includes an eGFR for both -Americans and non- Americans. The National Kidney Disease Education Program (NKDEP) does not endorse the use of the MDRD equation for patients that are not between the ages of 18 and 70, are , have extremes of body size, muscle mass, or nutritional status, or are non- or non-. According to the National Kidney Foundation, irrespective of diagnosis, the stage of the disease is based on the level of kidney function: Stage Description GFR(mL/min/1.73 m(2)) 1 Kidney damage with normal or decreased GFR 90 2 Kidney damage with mild decrease in GFR 60-89 3 Moderate decrease in GFR 30-59 4 Severe decrease in GFR 15-29 5 Kidney failure <15 (or dialysis) 37 Because ethnic data is not always readily available, this report includes an eGFR for both -Americans and non- Americans. The National Kidney Disease Education Program (NKDEP) does not endorse the use of the MDRD equation for patients that are not between the ages of 18 and 70, are , have extremes of body size, muscle mass, or nutritional status, or are non- or non-. According to the National Kidney Foundation, irrespective of diagnosis, the stage of the disease is based on the level of kidney function: Stage Description GFR(mL/min/1.73 m(2)) 1 Kidney damage with normal or decreased GFR 90 2 Kidney damage with mild decrease in GFR 60-89 3 Moderate decrease in GFR 30-59 4 Severe decrease in GFR 15-29 5 Kidney failure <15 (or dialysis) 38 HDL Interpretation: Undesirable: High Risk: Less than 40 MG/DL Desirable: Low Risk: Greater than 60 MG/DL 39 LDL Interpretation: Low Risk Optimal Level: LDL Less than 100 MG/DL Near or Above Optimal: LDL 100-129 MG/DL Borderline High Risk: LDL 130-159 MG/DL High Risk: LDL 160-189 MG/DL Very High Risk: LDL Greater than 189 MG/DL 40 Serum levels of PSA measured using the Dalton [employer] DXI Hybritech immunoassay should not be interpreted as absolute evidence of the presence or absence of disease. The PSA value should be used in conjunction with other pertinent clinical diagnostic procedures. A PSA value in the range of 0.1 to 0.6 ng/ml is indeterminate if being used as an indicator of recurrent or residual disease. The values obtained with different assay methods or kits cannot be used interchangeably. 41 URINE PROTEIN BELOW DETECTABLE LIMITS 42 URINE PROTEIN BELOW DETECTABLE LIMITS [address] Dewey 44 Therapeutic target for the treatment of diabetes Mellitus patients is <7% HBA1C, and in selective patients <6.0%.Please refer to [employer] Diabetic care guidelines for further information. 45 Serologic response to B. burgdorferi infection is not detected, but cannot rule out early infection during which low or undetectable antibody levels to B. burgdorferi may be present. If clinically indicated, a new serum specimen should be submitted in 7-14 days. Test Performed by: [place] [address] Offshoring Manager: Montez Choudhury III, M.D. [address] Dewey 47 Normal serum electrophoretic pattern. 48 Normal serum immunofixation electrophoretic pattern. No monoclonal protein detected. 49 SEE 0322;CU12 50 Normal serum electrophoretic pattern. 51 ---- RUN DATE: 06/22/11 [facility] NMI LIVE PAGE 1 RUN TIME: 1404 Specimen Inquiry RUN USER: INTERFACE -- Name: ANDREW VERMA Status: [facility] Re06/17/11 Age/Sex: 71/M Unit#: [id number] Location: [facility].O.B. : 41 -- Specimen: [id number] SOUT Spec Date:06/17/11- [facility] Dr: Keon de dios MD Spec Type: SURGICAL P Received:06/18/11-0554 Copies to: Candi Mahmood MD SPECIMEN WIDE EXCISION MELANOMA RIGHT CHEEK HISTORY PRE-OP DIAGNOSIS: Melanoma right cheek, suture crandall twelve o'clock posit ion GROSS DESCRIPTION The specimen is received in formalin labelled Andrew Verma, Wide Excision Melanoma Right Cheek, Suture Crandall Twelve O'clock Position, and consists of a skin excision measuring 4.5 x 1.7 x 1.1 cm. with a suture marking twelve o'clock. The skin is white and shows a well healed scar measuring 1.8 cm. The margins of excision are inked as follows: twelve through three to six o'clock black and the opposite margin blue. The entire specimen is serially sectioned and submitted from twelve to six o'clock in A through F. DIAGNOSIS Skin, right cheek, wide excision: A. Sebaceous skin with prior biopsy site related changes. B. No melanocytic neoplasia identified. Signed Electronically by: LUIS ANTONIO DURANT MD 06/22/11 1402 -- -- DEPARTMENT OF PATHOLOGY, [address] [place] [address] [facility] Permit #[id number] Luis Antonio Durant M.D. Director Rosamaria Wallace M.D. Utility Spray Operator Dir [place] -- 52 Please note updated reference range, effective 09/11/09 53 * SERUM LEVELS OF PSA MEASURED USING THE DALTON [employer] ACCESS HYBRITECH IMMUNOASSAY SHOULD NOT BE INTERPRETED ABSOLUTE EVIDENCE OF THE PRESENCE OR ABSENCE OF DISEASE. THE PSA VALUE SHOULD BE USED IN CONJUNCTION WITH OTHER PERTINENT CLINICAL DIAGNOSTIC PROCEDURES. A PSA value in the range of 0.1 to 0.6 ng/ml is indeterminate if being used as an indicator of recurrent or residual disease. . The values obtained with different assay methods of kits cannot be used interchangeably. 54 CHOLESTEROL INTERPRETATION: Desirable: Less than 200 MG/DL Borderline-High Risk: 200-239 MG/DL High-Risk: 240 MG/DL and over 55 HDL INTERPRETATION: Undesirable: High Risk: Less than 40 MG/DL Desirable: Low Risk: Greater than 60 MG/DL 56 LDL INTERPRETATION: Low Risk Optimal Level: LDL Less than 100 MG/DL Near or Above Optimal: LDL 100-129 MG/DL Borderline High Risk: LDL 130-159 MG/DL High Risk: LDL 160-189 MG/DL Very High Risk: LDL Greater than 189 MG/DL 57 Anion gap measurement may be of limited value in the presence of any alkalosis, especially in a combined acid base disorder. . 58 A metabolite of Naproxen, O-desmethylnaproxen, has been shown to interfere with the Jendrassik-Juan method for measuring total bilirubin. Samples from patients who have taken Naproxen have shown spurious elevation in total bilirubin levels. 59 Because ethnic data is not always readily available, this report includes an eGFR for both -Americans and non- Americans. The National Kidney Disease Education Program (NKDEP) does not endorse the use of the MDRD equation for patients that are not between the ages of 18 and 70, are , have extremes of body size, muscle mass, or nutritional status, or are non- or non-. According to the National Kidney Foundation, irrespective of diagnosis, the stage of the disease is based on the level of kidney function: Stage Description GFR(mL/min/1.73 m(2)) 1 Kidney damage with normal or decreased GFR 90 2 Kidney damage with mild decrease in GFR 60-89 3 Moderate decrease in GFR 30-59 4 Severe decrease in GFR 15-29 5 Kidney failure <15 (or dialysis) 60 NON FASTING 61 Anion gap measurement may be of limited value in the presence of any alkalosis, especially in a combined acid base disorder. . 62 A metabolite of Naproxen, O-desmethylnaproxen, has been shown to interfere with the [place]rassik-[place] method for measuring total bilirubin. Samples from patients who have taken Naproxen have shown spurious elevation in total bilirubin levels. 63 Because ethnic data is not always readily available, this report includes an eGFR for both -Americans and non- Americans. The National Kidney Disease Education Program (NKDEP) does not endorse the use of the MDRD equation for patients that are not between the ages of 18 and 70, are , have extremes of body size, muscle mass, or nutritional status, or are non- or non-. According to the National Kidney Foundation, irrespective of diagnosis, the stage of the disease is based on the level of kidney function: Stage Description GFR(mL/min/1.73 m(2)) 1 Kidney damage with normal or decreased GFR 90 2 Kidney damage with mild decrease in GFR 60-89 3 Moderate decrease in GFR 30-59 4 Severe decrease in GFR 15-29 5 Kidney failure <15 (or dialysis) 64 THERAPEUTIC TARGET FOR THE TREATMENT OF DIABETES MELLITUS PATIENTS IS <7% HBA1C, AND IN SELECTIVE PATIENTS <6.0%. PLEASE REFER TO [place] DI[employer]OC[employer]ATION DIABETIC CARE GUIDELINES FOR FURTHER INFORMATION. 65 Anion gap measurement may be of limited value in the presence of any alkalosis, especially in a combined acid base disorder. . 66 Because ethnic data is not always readily available, this report includes an eGFR for both -Americans and non- Americans. The National Kidney Disease Education Program (NKDEP) does not endorse the use of the MDRD equation for patients that are not between the ages of 18 and 70, are , have extremes of body size, muscle mass, or nutritional status, or are non- or non-. According to the National Kidney Foundation, irrespective of diagnosis, the stage of the disease is based on the level of kidney function: Stage Description GFR(mL/min/1.73 m(2)) 1 Kidney damage with normal or decreased GFR 90 2 Kidney damage with mild decrease in GFR 60-89 3 Moderate decrease in GFR 30-59 4 Severe decrease in GFR 15-29 5 Kidney failure <15 (or dialysis) 67 * SERUM LEVELS OF PSA MEASURED USING THE DALTON [employer] ACCESS HYBRITECH IMMUNOASSAY SHOULD NOT BE INTERPRETED ABSOLUTE EVIDENCE OF THE PRESENCE OR ABSENCE OF DISEASE. THE PSA VALUE SHOULD BE USED IN CONJUNCTION WITH OTHER PERTINENT CLINICAL DIAGNOSTIC PROCEDURES. A PSA value in the range of 0.1 to 0.6 ng/ml is indeterminate if being used as an indicator of recurrent or residual disease. . 68 CHOLESTEROL INTERPRETATION: Desirable: Less than 200 MG/DL Borderline-High Risk: 200-239 MG/DL High-Risk: 240 MG/DL and over 69 HDL INTERPRETATION: Undesirable: High Risk: Less than 40 MG/DL Desirable: Low Risk: Greater than 60 MG/DL 70 LDL INTERPRETATION: Low Risk Optimal Level: LDL Less than 100 MG/DL Near or Above Optimal: LDL 100-129 MG/DL Borderline High Risk: LDL 130-159 MG/DL High Risk: LDL 160-189 MG/DL Very High Risk: LDL Greater than 189 MG/DL 71 Anion gap measurement may be of limited value in the presence of any alkalosis, especially in a combined acid base disorder. . 72 A metabolite of Naproxen, O-desmethylnaproxen, has been shown to interfere with the Jendrassik-Juan method for measuring total bilirubin. Samples from patients who have taken Naproxen have shown spurious elevation in total bilirubin levels. 73 Because ethnic data is not always readily available, this report includes an eGFR for both -Americans and non- Americans. The National Kidney Disease Education Program (NKDEP) does not endorse the use of the MDRD equation for patients that are not between the ages of 18 and 70, are , have extremes of body size, muscle mass, or nutritional status, or are non- or non-. According to the National Kidney Foundation, irrespective of diagnosis, the stage of the disease is based on the level of kidney function: Stage Description GFR(mL/min/1.73 m(2)) 1 Kidney damage with normal or decreased GFR 90 2 Kidney damage with mild decrease in GFR 60-89 3 Moderate decrease in GFR 30-59 4 Severe decrease in GFR 15-29 5 Kidney failure <15 (or dialysis) 74 ---- RUN DATE: 03/24/10 [facility] NMI LIVE PAGE 1 RUN TIME: 1428 Specimen Inquiry RUN USER: INTERFACE -- Name: JOANN VERMA Status: REG REF Re03/23/10 Age/Sex: 70/M Unit#: [id number] Location: [facility]. : 41 -- Specimen: [id number] SOUT Spec Date: 03/23/[address]: Slick snow MD Spec Type: SURGICAL P Received: 03/23/10-8410 Copies to: Marcelo Fernando MD SPECIMEN BIOPSY HEPATIC FLEXURE POLYP HISTORY POST-OP DIAGNOSIS: Colonoscopy to terminal ileum. Mild sigmoid diverticul osis. Small polyp removed. CLINICAL INFORMATION: High risk screening. History of colon polyps. GROSS DESCRIPTION The specimen is received in formalin labelled Joann FunezSang Verma, Biopsy Hepatic Flexure Polyp, and consists of multiple parks soft tissue fragments measuring 1.0 x 0.3 x 0.2 cm. Submitted entirely, one cassette. DIAGNOSIS Colon, hepatic flexure, biopsies: A. Tubular adenoma. B. No high grade dysplasia or malignancy. Signed Electronically by: LUIS ANTONIO DURANT MD 03/24/10 1426 -- -- DEPARTMENT OF PATHOLOGY, [address] [place] [address] [facility] Permit #[id number] Luis Antonio Durant M.D. Director Rosamaria Wallace M.D. Utility Spray Operator Dir [place] -- 75 CHOLESTEROL INTERPRETATION: Desirable: Less than 200 MG/DL Borderline-High Risk: 200-239 MG/DL High-Risk: 240 MG/DL and over 76 HDL INTERPRETATION: Undesirable: High Risk: Less than 40 MG/DL Desirable: Low Risk: Greater than 60 MG/DL 77 LDL INTERPRETATION: Low Risk Optimal Level: LDL Less than 100 MG/DL Near or Above Optimal: LDL 100-129 MG/DL Borderline High Risk: LDL 130-159 MG/DL High Risk: LDL 160-189 MG/DL Very High Risk: LDL Greater than 189 MG/DL 78 * SERUM LEVELS OF PSA MEASURED USING THE DALTON [employer] ACCESS HYBRITECH IMMUNOASSAY SHOULD NOT BE INTERPRETED ABSOLUTE EVIDENCE OF THE PRESENCE OR ABSENCE OF DISEASE. THE PSA VALUE SHOULD BE USED IN CONJUNCTION WITH OTHER PERTINENT CLINICAL DIAGNOSTIC PROCEDURES. A PSA value in the range of 0.1 to 0.6 ng/ml is indeterminate if being used as an indicator of recurrent or residual disease. . 79 Anion gap measurement may be of limited value in the presence of any alkalosis, especially in a combined acid base disorder. . 80 Note change in reference range as of 10/12/07. The change was based on recommendations from the [place] [employer]. 81 Please note change in reference range effective 07 . 82 A metabolite of Naproxen, O-desmethylnaproxen, has been shown to interfere with the Jendrassik-Juan method for measuring total bilirubin. Samples from patients who have taken Naproxen have shown spurious elevation in total bilirubin levels. 83 Because ethnic data is not always readily available, this report includes an eGFR for both -Americans and non- Americans. The National Kidney Disease Education Program (NKDEP) does not endorse the use of the MDRD equation for patients that are not between the ages of 18 and 70, are , have extremes of body size, muscle mass, or nutritional status, or are non- or non-. According to the National Kidney Foundation, irrespective of diagnosis, the stage of the disease is based on the level of kidney function: Stage Description GFR(mL/min/1.73 m(2)) 1 Kidney damage with normal or decreased GFR 90 2 Kidney damage with mild decrease in GFR 60-89 3 Moderate decrease in GFR 30-59 4 Severe decrease in GFR 15-29 5 Kidney failure <15 (or dialysis) 84 Anion gap measurement may be of limited value in the presence of any alkalosis, especially in a combined acid base disorder. . 85 Note change in reference range as of 10/12/07. The change was based on recommendations from the [employer]. 86 Please note change in reference range effective 07 . 87 Because ethnic data is not always readily available, this report includes an eGFR for both -Americans and non- Americans. The National Kidney Disease Education Program (NKDEP) does not endorse the use of the MDRD equation for patients that are not between the ages of 18 and 70, are , have extremes of body size, muscle mass, or nutritional status, or are non- or non-. According to the National Kidney Foundation, irrespective of diagnosis, the stage of the disease is based on the level of kidney function: Stage Description GFR(mL/min/1.73 m(2)) 1 Kidney damage with normal or decreased GFR 90 2 Kidney damage with mild decrease in GFR 60-89 3 Moderate decrease in GFR 30-59 4 Severe decrease in GFR 15-29 5 Kidney failure <15 (or dialysis) 88 Because ethnic data is not always readily available, this report includes an eGFR for both -Americans and non- Americans. The National Kidney Disease Education Program (NKDEP) does not endorse the use of the MDRD equation for patients that are not between the ages of 18 and 70, are , have extremes of body size, muscle mass, or nutritional status, or are non- or non-. According to the National Kidney Foundation, irrespective of diagnosis, the stage of the disease is based on the level of kidney function: Stage Description GFR(mL/min/1.73 m(2)) 1 Kidney damage with normal or decreased GFR 90 2 Kidney damage with mild decrease in GFR 60-89 3 Moderate decrease in GFR 30-59 4 Severe decrease in GFR 15-29 5 Kidney failure <15 (or dialysis) 89 * SERUM LEVELS OF PSA MEASURED USING THE [email or web address] ACCESS HYBRITECH IMMUNOASSAY SHOULD NOT BE INTERPRETED ABSOLUTE EVIDENCE OF THE PRESENCE OR ABSENCE OF DISEASE. THE PSA VALUE SHOULD BE USED IN CONJUNCTION WITH OTHER PERTINENT CLINICAL DIAGNOSTIC PROCEDURES. A PSA value in the range of 0.1 to 0.6 ng/ml is indeterminate if being used as an indicator of recurrent or residual disease. . 90 Anion gap measurement may be of limited value in the presence of any alkalosis, especially in a combined acid base disorder. . 91 Note change in reference range as of 10/12/07. The change was based on recommendations from the [employer]. 92 Please note change in reference range effective 07 . 93 CHOLESTEROL INTERPRETATION: Desirable: Less than 200 MG/DL Borderline-High Risk: 200-239 MG/DL High-Risk: 240 MG/DL and over 94 HDL INTERPRETATION: Undesirable: High Risk: Less than 40 MG/DL Desirable: Low Risk: Greater than 60 MG/DL 95 LDL INTERPRETATION: Low Risk Optimal Level: LDL Less than 100 MG/DL Near or Above Optimal: LDL 100-129 MG/DL Borderline High Risk: LDL 130-159 MG/DL High Risk: LDL 160-189 MG/DL Very High Risk: LDL Greater than 189 MG/DL 96 MICROALBUMINURIA IN A RANDOM SAMPLE IS DEFINED : MICROALBUMIN/CREATININE RATIO OF 30-299 ug/mg. . 97 CHOLESTEROL INTERPRETATION: Desirable: Less than 200 MG/DL Borderline-High Risk: 200-239 MG/DL High-Risk: 240 MG/DL and over 98 HDL INTERPRETATION: Undesirable: High Risk: Less than 40 MG/DL Desirable: Low Risk: Greater than 60 MG/DL 99 LDL INTERPRETATION: Low Risk Optimal Level: LDL Less than 100 MG/DL Near or Above Optimal: LDL 100-129 MG/DL Borderline High Risk: LDL 130-159 MG/DL High Risk: LDL 160-189 MG/DL Very High Risk: LDL Greater than 189 MG/DL 10 * 0 SERUM LEVELS OF PSA MEASURED USING THE [email or web address] ACCESS HYBRITECH IMMUNOASSAY SHOULD NOT BE INTERPRETED ABSOLUTE EVIDENCE OF THE PRESENCE OR ABSENCE OF DISEASE. THE PSA VALUE SHOULD BE USED IN CONJUNCTION WITH OTHER PERTINENT CLINICAL DIAGNOSTIC PROCEDURES. A PSA value in the range of 0.1 to 0.6 ng/ml is indeterminate if being used as an indicator of recurrent or residual disease. . 10 Anion gap measurement may be of limited value in the 1 presence of any alkalosis, especially in a combined acid base disorder. . 10 Anion gap measurement may be of limited value in the 2 presence of any alkalosis, especially in a combined acid base disorder. . 10 3 MICROALBUMINURIA IN A RANDOM SAMPLE IS DEFINED : MICROALBUMIN/CREATININE RATIO OF 30-299 ug/mg. . 10 Anion gap measurement may be of limited value in the 4 presence of any alkalosis, especially in a combined acid base disorder. . 10 THERAPEUTIC TARGET FOR THE TREATMENT OF DIABETES 5 MELLITUS PATIENTS IS <7% HBA1C, AND IN SELECTIVE PATIENTS <6.0%. PLEASE REFER TO [place] [employer] DIABETIC CARE GUIDELINES FOR FURTHER INFORMATION. 10 * 6 SERUM LEVELS OF PSA MEASURED USING THE [email or web address] ACCESS HYBRITECH IMMUNOASSAY SHOULD NOT BE INTERPRETED ABSOLUTE EVIDENCE OF THE PRESENCE OR ABSENCE OF DISEASE. THE PSA VALUE SHOULD BE USED IN CONJUNCTION WITH OTHER PERTINENT CLINICAL DIAGNOSTIC PROCEDURES. A PSA value in the range of 0.1 to 0.6 ng/ml is indeterminate if being used as an indicator of recurrent or residual disease. . 10 Classification: Desirable 7 . 10 8 CALCULATED LDL APPROXIMATES THE VALUE OF A DIRECT LDL MEASUREMENT. Classification: Near or above optimal . 10 FASTING 9 11 * 0 SERUM LEVELS OF PSA MEASURED USING THE [email or web address] ACCESS HYBRITECH IMMUNOASSAY SHOULD NOT BE INTERPRETED ABSOLUTE EVIDENCE OF THE PRESENCE OR ABSENCE OF DISEASE. THE PSA VALUE SHOULD BE USED IN CONJUNCTION WITH OTHER PERTINENT CLINICAL DIAGNOSTIC PROCEDURES. A PSA value in the range of 0.1 to 0.6 ng/ml is indeterminate if being used as an indicator of recurrent or residual disease. . 11 Anion gap measurement may be of limited value in the 1 presence of any alkalosis, especially in a combined acid base disorder. . 11 Classification: Borderline High 2 . 11 3 CALCULATED LDL APPROXIMATES THE VALUE OF A DIRECT LDL MEASUREMENT. Classification: Borderline High . Procedures Date Code Description Status 12/07/2010 24034 Removal-Impacted Cerumen Completed 02/09/2010 36288 Destruction,Benign Lesions, Up To 14 Lesions Completed 01/20/2010 72096 Destruction,Benign Lesions, Up To 14 Lesions Completed 06/03/2009 52292 EKG, at Least 12 Leads w/Interpretation and Report Completed 07/06/2007 76210 Holter Monitor-24 Hours, Interpretation Only Completed 07/06/2007 70646 Holter Monitor-24 hrs,w/interpretation Completed 06/13/2007 86101 EKG, at Least 12 Leads w/Interpretation and Report Completed 05/19/2006 89959 EKG, at Least 12 Leads w/Interpretation and Report Completed Encounters Type Date Location Provider Dx Diagnosis Office Visit 03/16/2018 3:45p Main Office Marcelo Fernando M.D. G20 Parkinson' s disease I95.1 Orthostatic hypotension F41.9 Anxiety disorder, unspecified B35.4 Tinea corporis R47.02 Dysphasia Office Visit 01/26/2018 9:30a Main Office Marcelo Fernando M.D. G20 Parkinson' s disease I95.1 Orthostatic hypotension R31.9 Hematuria, unspecified Office Visit 11/21/2017 10:30a [facility] Marcelo Fernando G2Cesilia Hernandez' s vaibhav Ornelas I95.1 Orthostatic hypotension J30.0 Vasomotor rhinitis R31.9 Hematuria, unspecified Office Visit 10/26/2017 11:00a Main Office Marcelo Fernando M.D. G20 Parkinson' s disease F41.9 Anxiety disorder, unspecified Z23 Encounter for immunization Office Visit 09/21/2017 10:45a Main Office Marcelo Fernando M.D. G20 Parkinson' s disease I10 Essential (primary) hypertension F41.9 Anxiety disorder, unspecified R73.01 Impaired fasting glucose Office Visit 06/14/2017 10:45a Main Office Marcelo Fernando M.D. G20 Parkinson' s disease I10 Essential (primary) hypertension F41.9 Anxiety disorder, unspecified Office Visit 03/16/2017 10:45a Main Office Marcelo Fernando M.D. G20 Parkinson' s disease I10 Essential (primary) hypertension F41.9 Anxiety disorder, unspecified Office Visit 10/14/2016 3:15p Main Office Marcelo Fernando M.D. I10 Essential (primary) hypertension G20 Parkinson's disease Z23 Encounter for immunization Office Visit 07/22/2016 2:15p Main Office aMrcelo Fernando M.D. Z00.00 Encntr for general adult medical exam w/o abnormal findings I10 Essential (primary) hypertension E78.2 Mixed hyperlipidemia R73.01 Impaired fasting glucose G20 Parkinson's disease Office Visit 07/06/2016 9:30a Main Office Bryant Sy S40.862A Insect bite III, LABOR ARBITRATOR-C (nonvenomous) of left upper arm, init encntr Office Visit 06/17/2016 11:45a Main Office Ulises I10 Essential (primary) MD Russ hypertension Office Visit 01/22/2016 9:45a Main Office Marcelo Fernando R06.02 Shortness of breath M.D. G20 Parkinson's disease I10 Essential (primary) hypertension F41.9 Anxiety disorder, unspecified Office Visit 12/10/2015 11:15a Main Office Fernando Champagne6.02 Shortness of breath M.D. Office Visit 08/19/2015 3:00p Main Office Marcelo Fernando F41.9 Anxiety disorder, M.D. unspecified Office Visit 07/22/2015 2:00p Main Office Marcelo Fernando Z00.00 Encntr for general M.D. adult medical exam w/o abnormal findings G20 Parkinson's disease I10 Essential (primary) hypertension E78.2 Mixed hyperlipidemia R73.01 Impaired fasting glucose F41.9 Anxiety disorder, unspecified Z23 Encounter for immunization Office Visit 12/12/2014 10:15a Main Office Marcelo Fernando M.D. G20 Parkinson' s disease I10 Essential (primary) hypertension F51.8 Oth sleep disord not due to a sub or known physiol cond Office Visit 06/05/2014 10:45a Main Office Marcelo Fernando M.D. V70.0 Examination General Medical Routine AT Health Care Facility 332.0 Paralysis Agitans 401.9 Hypertension Unspec 272.2 Hyperlipidemia Mixed 790.21 Impaired Fasting Glucose 307.49 Sleep Disorder Other Office Visit 12/19/2013 9:30a Main Office Marcelo Fernando M.D. 401.9 Hypertension Unspec 307.49 Sleep Disorder Other Office Visit 08/29/2013 11:00a Main Office Marcelo Fernando 401.9 Hypertension Unspec M.D. Office Visit 06/19/2013 8:45a Main Office Marcelo Fernando V70.0 Examination General M.D. 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 300.09 Anxiety States Other 356.9 Neuropathy Peripheral Hereditary Idiopathic Unspec 332.0 Paralysis Agitans Office Visit 03/22/2012 9:30a Main Office Marcelo Fernando 300.09 Anxiety States Other M.D. Office Visit 12/21/2011 9:30a Main Office Marcelo Fernando 401.9 Hypertension Unspec M.D. 781.2 Gait Abnormality 172.8 Malignant Melanoma Other Spec Sites Skin 724.2 Lumbago V04.81 Need For Prophylactic Vaccination & Inoculation/Influenza Office Visit 06/18/2011 11:00a Main Office Marcelo Fernando M.D. 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 401.9 Hypertension Unspec Office Visit 12/03/2010 10:00a Main Office Marcelo Fernando M.D. 401.9 Hypertension Unspec 782.1 Rash & Other Nonspec Skin Eruption 724.2 Lumbago Office Visit 11/16/2010 10:15a Main Office Ludy Jurado 782.1 Rash & Other Ceci Kunz Nonspec Skin Eruption V04.81 Need For Prophylactic Vaccination & Inoculation/Influenza Office Visit 07/23/2010 4:30p Main Office Marcelo Fernando M.D. 782.1 Rash & Other Nonspec Skin Eruption Office Visit 06/03/2010 2:15p Main Office Marcelo Fernando M.D. 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 427.89 Cardiac Dysrhythmia Other 787.91 Diarrhea Office Visit 06/05/2008 8:45a Main Office Marcelo Fernando M.D. V70.0 Examination General Medical Routine AT [facility] Care Facility 401.9 Hypertension Unspec 272.2 Hyperlipidemia Mixed 790.21 Impaired Fasting Glucose 780.50 Sleep Disturbance Unspec Office Visit 08/22/2007 9:45a Main Office Antoinerachelle KingSang 729.5 Pain In Limb Storm, LABOR ARBITRATOR-C Office Visit 06/13/2007 8:45a Main Office Marcelo Fernando M.D. V70.0 Examination General Medical Routine AT Health Care Facility 401.9 Hypertension Unspec 272.2 Hyperlipidemia Mixed 790.21 Impaired Fasting Glucose 427.89 Cardiac Dysrhythmia Other V04.89 Need For Prophylactic Vaccination & Inoculation Other Virus Office Visit 02/09/2007 10:30a Main Office Marcelo Fernando M.D. 790.21 Impaired Fasting Glucose 401.9 Hypertension Unspec Office Visit 08/16/2006 11:15a Main Office Marcelo Fernando M.D. 401.9 Hypertension Unspec 790.21 Impaired Fasting Glucose Office Visit 04/14/2006 9:30a Main Office Marcelo Fernando M.D. 401.9 Hypertension Unspec 272.2 Hyperlipidemia Mixed 790.21 Impaired Fasting Glucose Office Visit 09/28/2005 10:15a Main Office Zach Beck, 465.9 URI Upper M.DSang Respiratory Infections Acute Unspec Sites Office Visit 01/26/2005 8:45a Main Office Marcelo Fernando M.D. V70.0 Examination General Medical Routine AT Health Care Facility 272.0 Hypercholesterolemia Pure V12.72 History Personal Colonic Polyps V76.44 Screening For Malig Shaun Prostate Office Visit 06/03/2004 Main Office Ivonne Beaver 088.81 Lyme Disease 3:15p Ceci Patel Office Visit 11/13/2003 Main Office Marcelo Fernando 272.0 Hypercholesterolemia Pure 9:30a Ceci V12.72 History Personal Colonic Polyps Plan of Treatment Future Appointment(s):08/16/2018 11:15 am - Marcelo Fernando M.D. at Main Office
--- OUTSIDE RECORDS SUMMARY | 2018-05-25 13:53 | XMS REPORT | Continuity of Care Document ---
:1940 External Reference #:[id number] Author Name Zach Rendon M.D. Address [address] [place] [address] Care Team Providers Name Role Phone Fernando, Marcelo Care Team Information Swing Driver Unavailable Marcelo Fernando Primary Care Physician Unavailable Payers Date Identification Numbers Payment Provider Subscriber Policy Number: [id number] [place] [employer] [employer] Andrew Verma PayID: [id number] [address] [place] [address] Policy [address]: [id number] [facility] Andrew Verma PayID: [id number] 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 Tobacco Use Start: Unknown Never Smoked Cigarettes Tobacco Use Start: Unknown Never Smoked Cigars Tobacco Use Start: Unknown Never Smoked A Pipe Smokeless Tobacco Never Used Smokeless Tobacco ETOH Use Currently rarely consumes alcohol Tobacco Use Start: Unknown Patient has never smoked Smoking Status Reviewed: 05/15/18 Patient has never smoked Allergies, Adverse Reactions, Alerts Description No Known Drug Allergies Medications Medication Date Status Form Strength Qnty SIG Indications Ordering Provider Ketoconazole / Active Shampoo 2% [facility], 0000 Alma Rosa GURROLA Escitalopram / Active Tablets 20mg Unknown Oxalate 0000 Donepezil HCL / Active Tablets 10mg Marcelo Fernando 0000 Buspirone HCL / Active Tablets 5mg Marcelo Fernando 0000 Melatonin / Active Capsules 10mg 2 by Unknown 0000 mouth every at bedtime as needed Vitamin D3 / Active Capsules 2000Unit 1 by Unknown 0000 mouth every day Salt Tablet / Active Unknown 0000 Fluticasone / Active Suspension 50mcg/Act [place] 1 2 Unknown Propionate 0000 Sprays Into Each Nostril Once Daily Immunizations Description No Information Available Vital Signs Date Vital Result Comment 05/15/2018 11:10am Weight 200.00 lb Weight 90.720 kg Height 75 inches 6'3" Height in cm's 190.5 cm BMI (Body Mass Index) 25.0 kg/m2 Results Description No Information Available Procedures Date Code Description Status 05/15/2018 33204 Fiberoptic Laryngoscopy Completed Encounters Type Date Location Provider Dx Diagnosis Office Visit 05/15/2018 [place],After 02/21/07 Zach Diaz R49.0 Dysphonia 11:00a Lydia Rendon. G20 Parkinson's disease Plan of Treatment 05/15/2018 - Zach Rendon M.D.R49.0 DysphoniaComments:The patient was referred to make sure there was nothing else causing his dysphonia other than his Parkinson's and supranuclear palsy. I think this is the major problem, but there is also some evidenceof presbyphonia. I have no concerns today. He should continue with the exercises that he was taughtby speech therapy.G20 Parkinson's disease
--- NOTE | 2018-05-25 13:57 | ED ---
Neurological HPI - HPI Summary HPI Summary: A 78 y/o male presents to [facility] with a chief complaint of fainting, losing consciousness on occasion since 05/11/18. He has no associated head traumas. The patient has a Hx of Parkinsons and Progressuve supranuclear palsy (PSP). The patient also reports feeling disoriented. At triage he rated his patient as a 0/10 in severity. He reports that he has seen his PCP and neurologist, Dr. Urbano at [facility], who report that his symptoms may be to his PSP. He reports that his conditions has been getting worse, but explains that his PSP is supposed to be getting progressively worse. - History of Current Complaint Chief Complaint: EDNeurologicalDeficit Stated Complaint: DISORIENTED, DIZZY, PER PT Time Seen by Provider: 05/25/18 13:36 Hx Obtained From: Patient Onset/Duration: Sudden Onset, Started weeks ago, Still Present Timing: Constant Onset Severity: Mild Current Severity: Mild Pain Intensity: 0 Pain Scale Used: 0-10 Numeric Character: Other: - fainting and feeling disoriented Aggravating: Nothing Alleviating: Nothing Associated Signs and Symptoms: Negative: Fever - Allergy/Home Medications Allergies/Adverse Reactions: Allergies Allergy/AdvReac Type Severity Reaction Status Date / Time No Known Allergies Allergy Verified 05/25/18 13:41 Home Medications: Home Medications Carbidopa/Levodop 25/100 MG(*) [Sinemet 25/100 TAB(*)] 1.5 tab PO 1200,1600, 2000 05/25/18 [History Confirmed 05/25/18] Carbidopa/Levodop 25/100 MG(*) [Sinemet 25/100 TAB(*)] 2 tab PO 0800 05/25/18 [ History Confirmed 05/25/18] Fluticasone NASAL SPRAY 50MCG* [Flonase NASAL SPRAY 50MCG*] 2 spray BOTH NARES DAILY PRN 05/25/18 [History Confirmed 05/25/18] Ketoconazole 120 ml TOPICAL Q48HR 05/25/18 [History Confirmed 05/25/18] Ketoconazole 2 % CREAM (NF) [Nizoral 2% CREAM (NF)] 1 applic TOPICAL Q48HR 05/25 [History Confirmed 05/25/18] PMH/Surg Hx/FS Hx/Imm Hx Endocrine/Hematology History: Denies: Hx Blood Disorders, Hx Blood Transfusions, Hx Diabetes, Hx Thyroid Disease Cardiovascular History: Reports: Hx Aneurysm - ascending aortal arch, Hx Hypotension, Hx Hypertension, Other Cardiovascular Problems/Disorders - PT STATES SMALL AORTIC ANEURYSM THAT IS BEING MONITORED Denies: Hx Pacemaker/ICD Respiratory History: Denies: Hx Chronic Obstructive Pulmonary Disease (COPD), Hx Pneumonia, Hx Sleep Apnea GI History: Denies: Hx Crohn's Disease, Hx Gall Bladder Disease, Hx Gastroesophageal Reflux Disease Musculoskeletal History: Denies: Hx Arthritis, Hx Fibromyalgia, Hx Gout, Hx Orthopedic Injury Sensory History: Reports: Hx Contacts or Glasses Denies: Hx Hearing Aid, Hx Hearing Problem Opthamlomology History: Reports: Hx Contacts or Glasses Neurological History: Reports: Other Neuro Impairments/Disorders - parkinsons Denies: Hx Migraine, Hx Seizures Psychiatric History: Reports: Hx Anxiety, Hx Depression Denies: Hx Panic Disorder, Hx Bipolar Disorder - Cancer History Cancer Type, Location and Year: MELANOMA Hx Chemotherapy: No Hx Radiation Therapy: No - Surgical History Surgery Procedure, Year, and Place: [place] REMOVED FROM RIGHT CHEEK Infectious Disease History: No Infectious Disease History: Denies: Traveled Outside the [place] in Last 30 Days - Family History Known Family History: Positive: Other - Noncontributory - Social History Alcohol Use: Weekly Alcohol Amount: 2 glasses wine Substance Use Type: Reports: None Smoking Status (MU): Never Smoked Tobacco Review of Systems Negative: Fever Neurological: Other - positive: feeling disoriented Positive: Syncope All Other Systems Reviewed And Are Negative: Yes Physical Exam - Summary Physical Exam Summary: VITAL SIGNS: Reviewed. GENERAL: Patient is a well-developed and nourished MALE with good hygiene who is lying comfortable in the stretcher. Patient is not in any acute respiratory distress. HEAD AND FACE: No signs of trauma. No ecchymosis, hematomas or skull depressions. No sinus tenderness. EYES: PERRLA, EOMI x 2, No injected conjunctiva, no nystagmus. EARS: Hearing grossly intact. Ear canals and tympanic membranes are within normal limits. MOUTH: Oropharynx within normal limits. NECK: Stiff neck, trachea is midline, no adenopathy, no JVD, no carotid bruit, no c-spine tenderness, neck with full ROM. CHEST: Symmetric, no tenderness at palpation LUNGS: Clear to auscultation bilaterally. No wheezing or crackles. CVS: Regular rate and rhythm, S1 and S2 present, no murmurs or gallops appreciated. ABDOMEN: Soft, non-tender. No signs of distention. No rebound no guarding, and no masses palpated. Bowel sounds are normal. EXTREMITIES: Muscle stiffness in upper and lower extremities. FROM in all major joints, no edema, no cyanosis or clubbing. NEURO: Shuffling in gait. Resting tremor both upper extremities. Alert and oriented x 3. No acute neurological deficits. Speech is normal and follows commands. SKIN: Dry and warm Triage Information Reviewed: Yes Vital Signs On Initial Exam: Initial Vitals Temp Pulse Resp BP Pulse Ox 98.4 F 69 16 137/77 98 05/25/18 13:36 05/25/18 13:36 05/25/18 13:36 05/25/18 13:36 05/25/18 13:36 Vital Signs Reviewed: Yes - [place] Coma Scale Best Eye Response: 4 - Spontaneous Best Motor Response: 6 - Obeys Commands Best Verbal Response: 5 - Oriented Coma Scale Total: 15 Diagnostics - Vital Signs Vital Signs Temp Pulse Resp BP Pulse Ox 05/25/18 13:36 98.4 F 69 16 137/77 98 - Laboratory Result Diagrams: 05/25/18 14:36 05/25/18 14:36 Lab Statement: Any lab studies that have been ordered have been reviewed, and results considered in the medical decision making process. - CT brain CT Interpretation Completed By: Radiologist Summary of CT Findings: There is no evidence of intracranial mass or hemorrhage noted. ED physician has reviewed this imaging report. - EKG 14:00 Cardiac Rate: NL - 60 bpm EKG Rhythm: Sinus Rhythm Summary of EKG Findings: NSR [address] elevations, normal axis Re-Evaluation - Re-Evaluation First Eval Re-Evaluation Time: 14:06 Change: Unchanged Comment: Per , the patient's syncopal episodes have been getting worse, getting disoriented, toilet is "too complex for him". She reports that she has not spoken with a neurologist. Course/Dx - Course Assessment/Plan: Patient is 78-year-old male with past medical history for Parkinsons disease and progressive supranuclear palsy presents to the emergency department with complaining the patient is getting more confused than his usual. Test results without any significant abnormality except for BUN is 27, glucose 108, total bili 1.3. Head CT impression: There is no evidence of intracranial mass or hemorrhage noted. In the ED course the patient was given IV fluids. Urinalysis is negative for UTI. At this point I discussed my physical exam and findings with the patient and the patients and they think actually the total bili is a progression of the PSP. Therefore they with follow-up with and the neurologist for further workup and management. Patient is hemodynamically stable alert and oriented 3. - Diagnoses Provider Diagnoses: PSP (progressive supranuclear palsy), Dizziness Discharge - Sign-Out/Discharge Documenting (check all that apply): Patient Departure - DC Patient Received Moderate/Deep Sedation with Procedure: No - Discharge Plan Condition: Stable Disposition: HOME Patient Education Materials: Dizziness (ED) Referrals: Marcelo Fernando MD [Primary Care Provider] - 3 Days Additional Instructions: FOLLOW UP WITH YOUR PRIMARY CARE PROVIDER AND DR. URBANO. RETURN TO THE ED FOR ANY WORSENING OR NEW SYMPTOMS. - Billing Disposition and Condition Condition: STABLE Disposition: Home - Attestation Statements Document Initiated by Olivia: Yes Documenting Scribe: Kt Urbina Provider For Whom Olivia is Documenting (Include Credential): Keith Metz MD Scribe Attestation: I, Kt Urbina, scribed for Keith Metz MD on 05/25/18 at 182. Scribe Documentation Reviewed: Yes Provider Attestation: The documentation as recorded by the Kt cali accurately reflects the service I personally performed and the decisions made by me, Keith Metz MD Status of Scribe Document: Viewed
[2018-05-25 14:42] LABS: ABS Basophils 0 10^3/ul (0-0.2); ABS Eosinophils 0.1 10^3/ul (0-0.6); ABS Lymphocytes 1.3 10^3/ul (1.0-4.8); ABS Monocytes 0.6 10^3/ul (0-0.8); ABS Neutrophils 3.7 10^3/ul (1.5-7.7); ABS Nucleated RBC 0 10^3/ul; Eosinophil % 2.4 %; Hematocrit 41 % (36-46); Hemoglobin 14.1 g/dL (14.0-18.0); Lymphocyte % 22.2 %; Mean Corpuscular HGB Conc 34 g/dL (31-36); Mean Corpuscular Hemoglobin 32 pg (27-31); Mean Corpuscular Volume 93 fL (80-94); Nucleated Red Blood Cells % 0.1; Platelet Count 202 10^3/uL (150-450); Red Blood Count 4.45 10^6 /uL (4.18-5.48); Red Cell Distribution Width 14 % (10.5-15); White Blood Count 5.7 10^3/uL (3.5-10.8)
[2018-05-25 14:55] LABS: INR 0.94 (0.77-1.02)
[2018-05-25 15:02] LABS: Albumin/Globulin Ratio 1.6 (1-3); BUN/Creatinine Ratio 32.1 (8-20); Calcium 8.9 mg/dL (8.6-10.3); EGFR African American 107.2 (>60); EGFR Non-African American 88.6 (>60); Globulin 2.5 g/dL (2-4); Potassium 4.5 mmol/L (3.5-5.0); Total Bilirubin 1.3 mg/dL (0.2-1.0); Total Protein 6.5 g/dL (6.4-8.9)
[2018-05-25 15:03] LABS: Troponin I 0.01 ng/mL (<0.04)
[2018-05-25 16:23] LABS: Urine Appearance Clear; Urine Bilirubin Negative (Negative); Urine Blood Negative (Negative); Urine Color Straw; Urine Glucose Negative (Negative); Urine Ketones Negative (Negative); Urine Nitrite Negative (Negative); Urine Protein Negative (Negative); Urine Specific Gravity 1.012 (1.010-1.030); Urine Urobilinogen Negative (Negative)
[2018-05-25 17:22] VITALS: BP 171/97
== END | disposition home or self-care (01) ==
LOC: ED 13:33
DX: G23.1 Progressive supranuclear ophthalmoplegia [Steele-Richardson-Olszewski] (principal); R42 Dizziness and giddiness; R55 Syncope and collapse; I10 Essential (primary) hypertension; Z86.79 Personal history of other diseases of the circulatory system; Z85.820 Personal history of malignant melanoma of skin
CPT/HCPCS: 36415; 70450; 80053; 81003; 82375; 83605; 84443; 84484; 85025; 85610; 93005; 99283